=== PATIENT | female | born 1950 | race Caucasian/White ===

== ENCOUNTER 2024-12-02 13:16 | Inpatient (IN) ==
--- NOTE | 2024-12-02 13:59 | Emergency Department Note ---
Impression & Plan Severe aortic stenosis, Acute CHF (congestive heart failure) ED Provider Note NAME: MIN WAGNER AGE: 74 SEX: F : 1950 ARRIVES VIA: Walk-In INFORMANT: Patient, ED PROVIDER(S): Jese Saldivar DO CHIEF COMPLAINT: SOB HPI: This is a 74-year-old female with the PMHx of HTN, HLD, DM, anxiety/depression and severe presenting to [facility] for further evaluation of shortness of breath. Patient is accompanied by her who provide additional history. Patient reports that she was at her director teen post today and they recommended that she report to the emergency room for further evaluation. Patient is unsure what this is for. She reports over the past few weeks she has had worsening shortness of breath and chest tightness. She states it is difficult for her to breathe. She does report a significant nonproductive cough. Does have orthopnea. Worsening lower extremity edema. They deny fever or chills. No congestion. Denies chest pain or palpitations. They deny abdominal pain, nausea and vomiting. No urinary complaints. No recent changes in bowel movements. Patient denies recent changes in medications or OTC supplements. Patient offers no other complaints, today. ADDITIONAL HISTORY OBTAINED: Per HPI Chronic Medical/Social Conditions Affecting Care: Per HPI PAST MEDICAL HISTORY: See Below PAST SURGICAL HISTORY: See Below FAMILY HISTORY: See Below SOCIAL HISTORY: See Below HOME MEDICATIONS: See Below ALLERGIES: See Below VITALS: See Below PHYSICAL EXAMINATION: GENERAL: Sitting up in bed, alert, well appearing, well nourished, no distress, non-toxic EYE EXAM: normal conjunctiva. OROPHARYNX: no exudate, no erythema, lips, buccal mucosa, and tongue normal and mucous membranes are moist NECK: supple, no nuchal rigidity, no adenopathy, non-tender LUNGS: Crackles in bases. Normal chest wall mechanics HEART: 4/6 systolic murmur, regular rate, regular rhythm ABDOMEN: abdomen soft, non-tender, no masses, no rebound or guarding. BACK: Back is symmetrical on inspection and there is no deformity, no midline tenderness, no CVA tenderness. SKIN: no rashes and no bruising UPPER EXTREMITIES: upper extremities are grossly normal. LOWER EXTREMITIES: Bilateral IRVIN NEURO EXAM: Normal sensorium, GCS 15, normal speech, no gross weakness of arms, no gross weakness of legs. MEDICAL DECISION MAKING: Differential diagnoses includes but not limited to critical aortic stenosis, ACS, unstable angina, dysrhythmia, PNA, hypervolemia/pulmonary edema, CHF exacerbation, COPD exacerbation, PE, pneumothorax, pericardial effusion, cardiac tamponade, anxiety/psychogenic, viral URI In summary, this is a 74 year old female who presented with worsening shortness of breath. Differential as above. Nursing notes and pertinent past medical records reviewed. Vital signs reviewed and the patient is afebrile and hemodynamically stable. History and presentation revealed known severe aortic stenosis with cardiology follow-up. Now with worsening shortness of breath concerning for CHF. Did review documentation with case management from [facility]. It does appear that the patient is scheduled to follow-up with Dr. Ruiz of [facility] cardiology. I do suspect this is likely for aortic valve replacement last TTE on file was from December of last year. Physical examination revealed as above. As a result of my initial evaluation, there was no documentation from today's cardiology visit. I do suspect the patient likely has severe aortic stenosis now with CHF. We will plan to touch base with cardiology for further recommendations as they sent the patient to the emergency department. I spoke with Dr. Murrell of [facility] cardiology. As expected, the patient has critical aortic stenosis with likely new onset heart failure. Patient needs inpatient diuresis and TTE. Diagnostics interpreted by me include EKG and cardiac monitoring as listed below: -Cardiac Monitoring: An order was placed for continuous cardiac monitoring. The monitor shows a rate of 70-80s with regular rhythm. -ECG: normal sinus rhythm at a ventricular rate of [address] segment changes to suggest STEMI. There are some lateral depressions/T wave flattening inversions. There is some artifact on this EKG. Poor R wave progression leading to ECG read as possible anterior infarct. Patient completed laboratory studies and imaging. I did obtain i-STAT chemistries in order to start IV diuresis for this patient. Hyperglycemia but otherwise normal kidney function and electrolytes. Will proceed with IV diuresis. She appears neha to diuretics and will utilize 40 mg of Lasix to start. Chest x-ray is independently interpreted by me as interstitial edema and bilateral small pleural effusions. Cardiomegaly present. Findings consistent with CHF exacerbation. Results independently interpreted by me are mild anemia. No significant leukocytosis. No significant electrolyte derangements or kidney dysfunction besides hyperglycemia. BNP is significantly elevated. Patient appears hypervolemic on physical examination and will need to continue IV diuresis as an inpatient. Formal TTE is pending at this time. Ultimately, the decision was made to admit the patient for severe aortic stenosis complicated by acute congestive heart failure. It was recommended to admit this patient at 1459. I discussed the case with the hospitalist service via telephone/[employer] and they are agreeable to admit the patient to their services. Based on the above, including the patient's age, coexisting illnesses, labs, imaging, and exam findings the decision to treat as an inpatient. I discussed the patient with the hospitalist team who recommended admission to their services. They received the medications, treatments, interventions indicated above and their condition remain guarded. I discussed my findings with the patient and their family and they understand and agree with the treatment plan. All patient / family questions were answered to their satisfaction. Consults/Care Managements Discussions: Per [facility] ER treatment provided: See above Procedures:none Critical Care: None The chart was completed utilizing [employer] Speech voice recognition software. Grammatical errors, random word insertions, pronoun errors, and incomplete sentences are an occasional consequence of this system due to software limitations, ambient noise, and hardware issues. Any formal questions or concerns about the content, text, or information contained within the body of this dictation should be directly addressed to the physician for clarification. Past Med/Surg History Problem List (Updated 12/02/24 @ 16:23 by Jese Saldivar DO) Acute CHF (congestive heart failure) (Acute) Severe aortic stenosis (Acute) Acute heart failure with preserved ejection fraction Medical History Mood disorder Hyperlipidemia Hypothyroidism Hypertension DM I (diabetes mellitus, type I) Surgical History History of tonsillectomy History of bilateral knee replacement Social History Smoking Status: Never smoker Feels Safe at Home: Yes Allergies Allergies Allergy/AdvReac Type Severity Reaction Status Date / Time aspirin Allergy Intermediate Hives Verified 12/02/24 15:20 salicylates Allergy Intermediate Hives Verified 12/02/24 15:20 codeine Allergy Unknown NOT ON Verified 12/02/24 15:20 [facility], CAN'T REMEMBER atorvastatin AdvReac Intermediate Nausea and Verified 12/02/24 15:20 body aches bupropion AdvReac Intermediate Dizziness,ringing Verified 12/02/24 15:20 in ear and irritable lisinopril AdvReac Intermediate COUGH/SORE Verified 12/02/24 15:20 THROAT metformin AdvReac Intermediate Diarrhea Verified 12/02/24 15:20 morphine AdvReac Intermediate NAUSEA/VOMI Verified 12/02/24 15:20 TING Home Meds Home Medications Medication Instructions Recorded Confirmed benzonatate 100 mg capsule 100 mg PO TID PRN Cough 12/02/24 12/02/24 buspirone 5 mg tablet 5 mg PO BID 12/02/24 12/02/24 cholecalciferol (vitamin D3) 25 25 mcg PO DAILY 12/02/24 12/02/24 mcg (1,000 unit) capsule (Vitamin D3) cyanocobalamin (vitamin B-12) 1,000 mcg PO DAILY 12/02/24 12/02/24 1,000 mcg tablet (Vitamin B-12) ezetimibe 10 mg tablet 10 mg PO QAM 12/02/24 12/02/24 insulin aspart U-100 100 unit/mL 0 sliding scale dose continuous 12/02/24 12/02/24 subcutaneous solution subcutaneous infusion CONTINOUS levothyroxine 100 mcg tablet 100 mcg PO DAILYBB 12/02/24 12/02/24 oxybutynin chloride 5 mg 5 mg PO QPM 12/02/24 12/02/24 tablet,extended release 24 hr pantoprazole 40 mg tablet,delayed 40 mg PO HS 12/02/24 12/02/24 release pravastatin 20 mg tablet 20 mg PO QDD 12/02/24 12/02/24 sertraline 100 mg tablet 100 mg PO QAM 12/02/24 12/02/24 vit C 250 mg-vit E 90 mg-zinc 40 2 tab PO QAM 12/02/24 12/02/24 mg-copper 1 [id number] capsule (PreserVision AREDS-2) zolpidem 5 mg tablet 5 mg PO HS PRN Sleep 12/02/24 12/02/24 Results & Data (ED) Vital Signs Vital Signs - 24 hr 12/02/24 13:28 12/02/24 14:00 12/02/24 14:12 Temperature 36.6 C Temperature Source Temporal Artery Scan Pulse Rate 84 80 Pulse Rate [Apical] 77 Pulse Rate from SpO2 Sensor 79 Respiratory Rate 18 17 24 Respiratory Effort / Characteristics Non-Labored Spontaneous Respiratory Depth Normal Blood Pressure 145/70 H 137/71 Blood Pressure [Right Arm] 120/71 Blood Pressure Mean 95 92 Blood Pressure Mean [Right Arm] 87 Blood Pressure Position [Right Arm] Lying Pulse Oximetry 97 97 96 Oxygen Delivery Method Room Air Sepsis Recent Fever Within 48 Hours No Sepsis New/Unexplained Change in Mental Status No Sepsis Action Taken by Nursing No Action Required 12/02/24 14:12 12/02/24 14:24 12/02/24 14:26 Temperature Temperature Source Pulse Rate 76 81 Pulse Rate [Apical] 80 Pulse Rate from SpO2 Sensor 75 81 Respiratory Rate 27 H 27 H 22 Respiratory Effort / Characteristics Non-Labored Spontaneous Respiratory Depth Normal Blood Pressure 120/71 112/61 Blood Pressure [Right Arm] 112/61 Blood Pressure Mean 87 78 Blood Pressure Mean [Right Arm] 78 Blood Pressure Position [Right Arm] Lying Pulse Oximetry 96 93 94 Oxygen Delivery Method Room Air Sepsis Recent Fever Within 48 Hours Sepsis New/Unexplained Change in Mental Status Sepsis Action Taken by Nursing 12/02/24 14:42 12/02/24 14:47 Temperature Temperature Source Pulse Rate 80 76 Pulse Rate [Apical] Pulse Rate from SpO2 Sensor 82 Respiratory Rate 28 H Respiratory Effort / Characteristics Respiratory Depth Blood Pressure 121/68 Blood Pressure [Right Arm] Blood Pressure Mean 85 Blood Pressure Mean [Right Arm] Blood Pressure Position [Right Arm] Pulse Oximetry 95 Oxygen Delivery Method Sepsis Recent Fever Within 48 Hours Sepsis New/Unexplained Change in Mental Status Sepsis Action Taken by Nursing Laboratory Data 12/02/24 13:55 12/02/24 13:55 Lab Results 12/02/24 12/02/24 12/02/24 Range/Units 13:55 14:01 14:07 WBC 4.12 L (4.8-10.8) K/ul RBC 4.33 (4.20-5.40) M/uL Hgb 9.2 L (12.0-16.0) g/dl POC Hgb 9.9 L (12.0-16.0) g/dl Hct 30.6 L (37.0-47.0) % POC Hct 29 L (37-47) % MCV 70.7 L (80.0-100.0) fL MCH 21.2 L (25.0-34.0) pg MCHC 30.1 L (32.0-36.0) g/dL RDW Std Deviation 48.0 H (36.4-46.3) fL RDW Coeff of Kemar 19.3 H (11.5-14.5) % Plt Count 235 (130-400) K/uL MPV 11.5 (9.4-12.4) fL Immature Gran % (Auto) 0.2 % Neut % (Auto) 56.3 % Lymph % (Auto) 33.0 % [place] % (Auto) 7.8 % Eos % (Auto) 2.7 % Baso % (Auto) 0.0 % Neut # (Auto) 2.32 (1.40-6.50) K/uL Lymph # (Auto) 1.36 (1.20-3.40) K/uL [place] # (Auto) 0.32 (0.11-0.59) K/uL Eos # (Auto) 0.11 (0.00-0.50) K/uL Baso # (Auto) 0.00 (0.00-0.20) K/uL Immature Gran # (Auto) 0.01 (0.01-0.20) K/uL PT 10.9 (9.0-12.0) Seconds INR 1.0 (0.9-1.1) POC Sodium 142 (135-144) mmol/L Sodium 137 (136-145) mmol/L POC Potassium 3.8 (3.3-5.0) mmol/L Potassium 3.7 (3.5-5.1) mmol/L POC Chloride 100 L (101-112) mmol/L Chloride 105 (98-107) mmol/L Carbon Dioxide 27 (21-32) mmol/L POC Total CO2 23 L (24-31) mmol/L Anion Gap 5 (3-11) POC Anion Gap 24.0 (16-25) mmol/L POC BUN 6 L (7-18) mg/dl BUN 8 (6-23) mg/dl Creatinine 0.53 L (0.6-1.2) mg/dl POC Creatinine 0.5 L (0.6-1.3) mg/dl Est Cr Clr Drug Dosing 90.6 ml/min eGFR 95.79 BUN/Creatinine Ratio 15.1 (10-20) Glucose 232 H (70-99(Fasting)) mg/dl POC Glucose (70-99) mg/dl POC Glucose (other) 213 H (70-99) mg/dl Calcium 8.6 (8.6-10.3) mg/dl POC Ioniz Calcium Anurag 1.14 (1.12-1.32) mmol/l Magnesium 2.0 (1.7-2.4) mg/dl Total Bilirubin 0.7 (0.2-1.0) mg/dl AST 29 (13-39) U/L ALT 16 (7-52) U/L Alkaline Phosphatase 66 (34-104) U/L Troponin I High Sens 30.8 H (0-14) pg/ml B-Natriuretic Peptide 1132 H (0-100) pg/ml Total Protein 6.9 (6.0-8.3) gm/dl Albumin 3.6 (3.4-5.0) gm/dl Globulin 3.3 (2.5-4.0) gm/dl Albumin/Globulin Ratio 1.1 (0.9-2) Adenovirus (PCR) Not Detected (NotDetected) B. pertussis DNA (PCR) Not Detected (NotDetected) B.parapertussis DNA PCR Not Detected (NotDetected) C. pneumoniae DNA (PCR) Not Detected (NotDetected) Coronavirus OC43 (PCR) Not Detected (NotDetected) Coronavirus HKU1 (PCR) Not Detected (NotDetected) Coronavirus 229E (PCR) Not Detected (NotDetected) SARS-CoV-2 (PCR) Not Detected (NotDetected) Coronavirus NL63 (PCR) Not Detected (NotDetected) Human Metapneumovir PCR Not Detected (NotDetected) Influenza Type A (PCR) Not Detected (NotDetected) Influenza Type B (PCR) Not Detected (NotDetected) M. pneumoniae (PCR) Not Detected (NotDetected) Parainfluenza 1 (PCR) Not Detected (NotDetected) Parainfluenza 2 (PCR) Not Detected (NotDetected) Parainfluenza 3 (PCR) Not Detected (NotDetected) Parainfluenza 4 (PCR) Not Detected (NotDetected) RSV (PCR) Not Detected (NotDetected) Entero/Rhino (PCR) Not Detected (NotDetected) 12/02/24 Range/Units 14:52 WBC (4.8-10.8) K/ul RBC (4.20-5.40) M/uL Hgb (12.0-16.0) g/dl POC Hgb (12.0-16.0) g/dl Hct (37.0-47.0) % POC Hct (37-47) % MCV (80.0-100.0) fL MCH (25.0-34.0) pg MCHC (32.0-36.0) g/dL RDW Std Deviation (36.4-46.3) fL RDW Coeff of Kemar (11.5-14.5) % Plt Count (130-400) K/uL MPV (9.4-12.4) fL Immature Gran % (Auto) % Neut % (Auto) % Lymph % (Auto) % [place] % (Auto) % Eos % (Auto) % Baso % (Auto) % Neut # (Auto) (1.40-6.50) K/uL Lymph # (Auto) (1.20-3.40) K/uL [place] # (Auto) (0.11-0.59) K/uL Eos # (Auto) (0.00-0.50) K/uL Baso # (Auto) (0.00-0.20) K/uL Immature Gran # (Auto) (0.01-0.20) K/uL PT (9.0-12.0) Seconds INR (0.9-1.1) POC Sodium (135-144) mmol/L Sodium (136-145) mmol/L POC Potassium (3.3-5.0) mmol/L Potassium (3.5-5.1) mmol/L POC Chloride (101-112) mmol/L Chloride (98-107) mmol/L Carbon Dioxide (21-32) mmol/L POC Total CO2 (24-31) mmol/L Anion Gap (3-11) POC Anion Gap (16-25) mmol/L POC BUN (7-18) mg/dl BUN (6-23) mg/dl Creatinine (0.6-1.2) mg/dl POC Creatinine (0.6-1.3) mg/dl Est Cr Clr Drug Dosing ml/min eGFR BUN/Creatinine Ratio (10-20) Glucose (70-99(Fasting)) mg/dl POC Glucose 159 H (70-99) mg/dl POC Glucose (other) (70-99) mg/dl Calcium (8.6-10.3) mg/dl POC Ioniz Calcium Anurag (1.12-1.32) mmol/l Magnesium (1.7-2.4) mg/dl Total Bilirubin (0.2-1.0) mg/dl AST (13-39) U/L ALT (7-52) U/L Alkaline Phosphatase (34-104) U/L Troponin I High Sens (0-14) pg/ml B-Natriuretic Peptide (0-100) pg/ml Total Protein (6.0-8.3) gm/dl Albumin (3.4-5.0) gm/dl Globulin (2.5-4.0) gm/dl Albumin/Globulin Ratio (0.9-2) Adenovirus (PCR) (NotDetected) B. pertussis DNA (PCR) (NotDetected) B.parapertussis DNA PCR (NotDetected) C. pneumoniae DNA (PCR) (NotDetected) Coronavirus OC43 (PCR) (NotDetected) Coronavirus HKU1 (PCR) (NotDetected) Coronavirus 229E (PCR) (NotDetected) SARS-CoV-2 (PCR) (NotDetected) Coronavirus NL63 (PCR) (NotDetected) Human Metapneumovir PCR (NotDetected) Influenza Type A (PCR) (NotDetected) Influenza Type B (PCR) (NotDetected) M. pneumoniae (PCR) (NotDetected) Parainfluenza 1 (PCR) (NotDetected) Parainfluenza 2 (PCR) (NotDetected) Parainfluenza 3 (PCR) (NotDetected) Parainfluenza 4 (PCR) (NotDetected) RSV (PCR) (NotDetected) Entero/Rhino (PCR) (NotDetected) Administered Medications Discontinued Medications Furosemide (Furosemide 40 Mg/4 Ml Vial) 40 mg IV ONE ONE Stop: 12/02/24 14:02 Last Admin: 12/02/24 14:13 Dose: 40 mg Documented By: [email or web address] Imaging Data Radiologist's Impression: Chest X-Ray 12/02/24 13:41 XR chest 1V portable CLINICAL HISTORY: Dyspnea COMPARISON STUDY: 01/17/2012 FINDINGS: There is increased cardiomegaly with pulmonary vascular congestion. There are small bilateral pleural effusions with adjacent lung base consolidation. There is pulmonary interstitial prominence. No pneumothorax. IMPRESSION: CHF with small bilateral pleural effusions. ACT 112: Negative or not required by law. Electronically signed by: Taj Navarro M.D. 12/02/2024 2:18 PM Discharge Plan Visit Data Chief Complaint: Cardiac Assessment Stated Complaint: HEART, DOC REFERRAL ED Provider: Jese Saldivar Discharge Problem: Severe aortic stenosis, Acute CHF (congestive heart failure) Patient Disposition: Admitted As Inpatient Condition: Serious Forms Stand Alone Forms: [facility] [place] [employer] Prescriptions Prescriptions: No Action buspirone 5 mg tablet 5 mg PO BID sertraline 100 mg tablet 100 mg PO QAM cyanocobalamin (vitamin B-12) [Vitamin B-12] 1,000 mcg Tablet 1,000 mcg PO DAILY levothyroxine 100 mcg tablet 100 mcg PO DAILYBB benzonatate 100 mg capsule 100 mg PO TID PRN (Reason: Cough) insulin aspart U-100 100 unit/mL solution 0 sliding scale dose continuous subcutaneous infusion CONTINOUS MDD 80 UNITS/DAILY Rx Instructions: insulin pump pantoprazole 40 mg tablet,delayed release (DR/EC) 40 mg PO HS oxybutynin chloride 5 mg tablet extended release 24hr 5 mg PO QPM pravastatin 20 mg tablet 20 mg PO QDD zolpidem 5 mg tablet 5 mg PO HS PRN (Reason: Sleep) cholecalciferol (vitamin D3) [Vitamin D3] 25 mcg (1,000 unit) Capsule 25 mcg PO DAILY ezetimibe 10 mg tablet 10 mg PO QAM PreserVision AREDS-2 250-90-40-1 mg Capsule 2 tab PO QAM Referrals Referrals: Anam Castro MD [Outside Practitioners] -
--- NOTE | 2024-12-02 14:09 | Cardiology Consultation ---
Date of Consultation December 02, 2024 Assessment & Plan (1) Acute heart failure with preserved ejection fraction: (2) Severe aortic stenosis: Plan Patient is a 74 year old female admitted to [facility] from PCP office with complaints of dyspnea/cough/volume overload consistent with acute heart failure likely due to severe valvular heart disease/severe . Echo in Dec 2023 demonstrated borderline severe at the time. chest xray as an outpatient yesterday with pulm vascular congestion and small b/l pleural effusions. Recommendations: Furosemide 40 mg IV lasix now. May need repeat dose later this evening. Titrate dose as needed based on response. Update echo Monitor I+O's Daily weight with standing scale. Labs pending. Replace electrolytes as needed Currently BP is controlled. Further recommendations pending response to IV lasix, review of labs, echo, and discussion with Dr. Murrell. Patient does not take a diuretic as an outpatient and will likely need one going forward once volume status is optimized here. Will ultimately require valvular intervention in the future for likely severe . Case discussed with Dr. Murrell I spent a total of 60 minutes on the date of service in preparation, delivery, and documentation of the care provided to this patient, excluding any time spent in the performance of separately billed services. Briseida Gutierrez PA-C Department of Cardiology, [facility] This chart was completed in part utilizing Speech Voice Recognition Software. Grammatical errors, random word insertions, pronoun errors, and incomplete sentences are an occasional consequence of this system due to software limitations, ambient noise, and hardware issues. Any formal questions or concerns about the content, text, or information contained within the body of this dictation should be directly addressed to the provider for clarification. Supervising Physician Co-Signing Physician Notes Patient was seen and personally examined. Chart, medications reviewed. Inpatient outpatient records and echocardiogram personally reviewed. Full assessment and plan as outlined by advanced provider above. Care and management discussed and personally endorsed 74-year-old female with known borderline severe to severe calcific aortic stenosis presents with several weeks of worsening shortness of breath and cough not responsive to outpatient management with bronchodilators and antibiotics. Chest x-ray demonstrates pleural effusions and congestive heart failure. Echocardiogram today reviewed demonstrates mild left ventricular hypertrophy. Mild global hypokinesis EIF 45 to 50% Aortic valve trileaflet and calcified with restricted mobility peak aortic valve velocity 4.1 4.2 m/s there is mild aortic insufficiency, moderate to severe mitral insufficiency and mild tricuspid insufficiency with elevated pulmonary pressures by indirect measurement. Left atrium is moderately dilated. Laboratory studies notable for microcytic anemia Exam Harsh grade 3/6 systolic murmur with S2 obscured trace pedal edema only with basilar rales on pulmonary exam Impression: Decompensated congestive heart failure, valvular Plan as above. Begin an initial treatment with IV diuretic Iron studies to investigate microcytic anemia Cardiology will continue to follow History of Present Illness Reason for Consultation: Severe Aortic stenosis; Acute HFpEF Requesting Physician: ER/[facility] Hospitalist Attending Physician: Dr. Murrell History of Present Illness Patient is a 74 year old female presenting to [place] ER today by the direction of her PCP due to worsening SOB, volume overload and concerns regarding acute HFpEF due to severe . Patient is known to [facility] Cardiology/Dr. Murrell. History includes: 1. Borderline severe to severe per echo in 12/2023. 2. Hypertension 3. Dyslipidemia 4. DM type II Patient reports worsening SOB, cough, chest congestion starting several weeks ago. She went to urgent care and was treated for lower respiratory tract infection/bronchitis, but symptoms failed to improve. She had a chest xray yesterday as an outpatient which demonstrated pulm vascular congestion and small b/l pleural effusions. She went to see PCP today and due to concerns for HFpEF due to valvular heart disease, she was sent to the ER. She also reports 10 lb weight gain over the last few weeks as well. She reports compliance with all meds as outpatient. She does not take a diuretic. Her echo in Dec 2023 demonstrated borderline severe . She is scheduled to see valve clinic as an outpatient in Dec 2024. At time of consult, patient resting in bed. She reports feeling "ok" at rest. SOB occurs with minimal exertion such as walking across the room. No chest pain reported. She notes ongoing abdominal bloating over the last few weeks. She has a cough at night with orthopnea recently as well. Labs are currently pending. She just received IV lasix 40 mg in the ER at time of evaluation. Allergies Allergy/AdvReac Type Severity Reaction Status Date / Time aspirin Allergy Intermediate Hives Verified 12/02/24 15:20 salicylates Allergy Intermediate Hives Verified 12/02/24 15:20 codeine Allergy Unknown NOT ON Verified 12/02/24 15:20 [facility] MED LIST, CAN'T REMEMBER atorvastatin AdvReac Intermediate Nausea and Verified 12/02/24 15:20 body aches bupropion AdvReac Intermediate Dizziness,ringing Verified 12/02/24 15:20 in ear and irritable lisinopril AdvReac Intermediate COUGH/SORE Verified 12/02/24 15:20 THROAT metformin AdvReac Intermediate Diarrhea Verified 12/02/24 15:20 morphine AdvReac Intermediate NAUSEA/VOMI Verified 12/02/24 15:20 TING Home Medications Medication Instructions Recorded Confirmed Type benzonatate 100 mg capsule 100 mg PO TID PRN Cough 12/02/24 12/02/24 History buspirone 5 mg tablet 5 mg PO BID 12/02/24 12/02/24 History cholecalciferol (vitamin D3) 25 25 mcg PO DAILY 12/02/24 12/02/24 History mcg (1,000 unit) capsule (Vitamin D3) cyanocobalamin (vitamin B-12) 1,000 mcg PO DAILY 12/02/24 12/02/24 History 1,000 mcg tablet (Vitamin B-12) ezetimibe 10 mg tablet 10 mg PO QAM 12/02/24 12/02/24 History insulin aspart U-100 100 unit/mL 0 sliding scale dose continuous 12/02/24 12/02/24 History subcutaneous solution subcutaneous infusion CONTINOUS levothyroxine 100 mcg tablet 100 mcg PO DAILYBB 12/02/24 12/02/24 History oxybutynin chloride 5 mg 5 mg PO QPM 12/02/24 12/02/24 History tablet,extended release 24 hr pantoprazole 40 mg tablet,delayed 40 mg PO HS 12/02/24 12/02/24 History release pravastatin 20 mg tablet 20 mg PO QDD 12/02/24 12/02/24 History sertraline 100 mg tablet 100 mg PO QAM 12/02/24 12/02/24 History vit C 250 mg-vit E 90 mg-zinc 40 2 tab PO QAM 12/02/24 12/02/24 History mg-copper 1 [id number] capsule (PreserVision AREDS-2) zolpidem 5 mg tablet 5 mg PO HS PRN Sleep 12/02/24 12/02/24 History Patient History Medical History (Updated 12/02/24 @ 16:23 by Jese Saldivar DO) Mood disorder Hyperlipidemia Hypothyroidism Hypertension DM I (diabetes mellitus, type I) Surgical History (Updated 12/02/24 @ 16:20 by Lee Ann Greene PA-C) History of tonsillectomy History of bilateral knee replacement Social History Smoking Status: Never smoker Feels Safe at Home: Yes Review of Systems Review of Systems: All systems reviewed & are unremarkable except as noted in HPI & below Physical Exam Constitutional: WD/WN, vitals as above no acute distress Respiratory: no labored breathing Auscultation: + crackles (B/L) Cardiovascular: Rate/Rhythm: regular rate and regular rhythm Heart Sounds: + murmur (II-III systolic murmur LSB with radiation to the neck) Vessels: + JVD Extremities: + edema (1+ b/l edema) Gastrointestinal (Abdomen): normal bowel sounds, soft, nontender, no hepatosplenomegaly Musculoskeletal: no cyanosis or clubbing, extremities motor strength 5/5 Neurologic: PERRL, EOMI, accommodation nl, no face palsy, no dysarthria Psychiatric: A+Ox3, euthymic affect Results & Data Vital Signs (Past 12 Hours) Vital Signs Temp Pulse Resp BP Pulse Ox 12/02/24 13:28 36.6 C 84 18 145/70 H 97 Laboratory Results Intake and Output 12/01/24 12/02/24 12/02/24 22:59 06:59 14:59 Other: Weight 87.2 kg Weight Measurement Method Chair Scale Patient Weight 12/03/24 06:59 Weight 87.2 kg Labs pending Diagnostic Findings Telemetry: NSR. No arrhythmias EKG here - pending Echo - pending Prior outside data reviewed: EKG completed today at PCP office - NSR with T wave inversion in lateral leads - I, AVL Chest xray reviewed from yesterday: IMPRESSION Mild pulmonary vascular congestion and small pleural effusions. Echo report reviewed from Dec 2023: Interpretation Summary The examination is adequate to evaluate the referral indication. The LV wall thickness is mildly increased (concentric). The left atrium is moderately enlarged. The qualitative LV ejection fraction is 55-59% (normal). The aortic valve is moderately calcified. Borderline severe to severe aortic stenosis is present. The peak CW velocity= 4 meters/second as obtained from the right sternal border with the non imaging probe. Mean gradient 35 mm Hg. The aortic valve area by planimetry method is in the range of 0.9-1.1 cm2. Moderate aortic valve regurgitation is present. Mild mitral regurgitation is present. Mild tricuspid regurgitation is present. The aortic root and proximal ascending aorta are normal sized. Compared to the previous study dated 08/22/2023, the velocities across the aortic valve have progressed to a subtle degree. On 2D assessment, the valve is slightly better visualized on the present study Medications Administered Furosemide 40 mg IV x1 dose given in the ER. Home meds not verified currently. PG Care Time/CCT Total # of Minutes Spent Total Time Spent with Patient: Total time spent is greater than 50% in coordination of care (as documented) at patient's floor/unit and/or counseling patient: 60 minutes Coding Level of Care Code 24725 IN/OBS CONSULT LVL 5,80M Diagnoses Acute heart failure with preserved ejection fraction I50.31 Severe aortic stenosis I35.0
[2024-12-02] MEDS: FUROSEMIDE 40 MG/4 ML VIAL IV ONE (14:13)
--- NOTE | 2024-12-02 14:19 | XRay Report ---
XR chest 1V portable CLINICAL HISTORY: Dyspnea COMPARISON STUDY: 01/17/2012 FINDINGS: There is increased cardiomegaly with pulmonary vascular congestion. There are small bilater al pleural effusions with adjacent lung base consolidation. There is pulmonary interstitial prominenc e. No pneumothorax. IMPRESSION: CHF with small bilateral pleural effusions. ACT 112: Negative or not required by law. Electronically signed by: Taj Navarro M.D. 12/02/2024 2:18 PM
[2024-12-02 14:38] LABS: Hematocrit (blood only) 30.6 % (37.0-47.0); Hemoglobin 9.2 g/dl (12.0-16.0); Immature Granulocytes # (auto) 0.01 K/uL (0.01-0.20); Immature Granulocytes % (auto) 0.2 %; Mean Corpuscular Hemoglobin 21.2 pg (25.0-34.0); Mean Corpuscular Volume 70.7 fL (80.0-100.0); Platelet Count 235 K/uL (130-400); RDW Standard Deviation 48.0 fL (36.4-46.3); Red Blood Count 4.33 M/uL (4.20-5.40); White Blood Count 4.12 K/ul (4.8-10.8)
[2024-12-02 14:57] LABS: Alanine Aminotransferase 16.0 U/L (7-52); Albumin Globulin Ratio 1.1 (0.9-2); Albumin Level 3.6 gm/dl (3.4-5.0); Alkaline Phosphatase 66.0 U/L (34-104); Anion Gap 5.0 (3-11); Bilirubin,Total 0.7 mg/dl (0.2-1.0); Blood Urea Nitrogen 8.0 mg/dl (6-23); Calcium 8.6 mg/dl (8.6-10.3); Carbon Dioxide 27.0 mmol/L (21-32); Chloride 105.0 mmol/L (98-107); Creatinine Clr Calc Pharmacy 90.6 ml/min; Globulin 3.3 gm/dl (2.5-4.0); Glucose 232.0 mg/dl (70-99(Fasting)); Magnesium 2.0 mg/dl (1.7-2.4); Potassium 3.7 mmol/L (3.5-5.1); Sodium 137.0 mmol/L (136-145); Total Protein 6.9 gm/dl (6.0-8.3)
[2024-12-02 15:08] LABS: INR 1.0 (0.9-1.1); Prothrombin Time 10.9 Seconds (9.0-12.0)
[2024-12-02 15:26] LABS: Chlamydia pneumoniae PCR Not Detected (NotDetected); Coronavirus 229E PCR Not Detected (NotDetected); Coronavirus CoV-2 (COVID19)PCR Not Detected (NotDetected); Coronavirus HKU1 PCR Not Detected (NotDetected); Coronavirus NL63 PCR Not Detected (NotDetected); Coronavirus OC43PCR Not Detected (NotDetected); Human Metapneumovirus PCR Not Detected (NotDetected); Parainfluenza Virus 1 PCR Not Detected (NotDetected); Parainfluenza Virus 2 PCR Not Detected (NotDetected); Parainfluenza Virus 3 PCR Not Detected (NotDetected); Parainfluenza Virus 4 PCR Not Detected (NotDetected); Respiratory Syncytial VirusPCR Not Detected (NotDetected); Rhinovirus/Enterovirus PCR Not Detected (NotDetected)
--- NOTE | 2024-12-02 15:28 | History & Physical Report ---
Date of Service December 02, 2024 Assessment & Plan (1) Severe aortic stenosis: (2) Acute heart failure with preserved ejection fraction: (3) DM I (diabetes mellitus, type I): (4) Mood disorder: (5) Hyperlipidemia: (6) Hypothyroidism: Plan Patient is a 74 yo F with PMH with borderline severe aortic valve stenosis as per echo in 12/2023, DM I, hypothyroidism, hyperlipidemia, mood disorder and other medical problems listed below sent over from PCP's office due to worsening SOB, cough and congestion over the past few weeks consistent with acute CHF 2/2 severe aortic stenosis. Acute heart failure in setting of severe aortic stenosis SOB x 2 weeks, outpatient CXR from 12/02 with pulm vascular congestion and small bilateral pleural effusions Echo from 2023 showed borderline severe . She is scheduled to see valve clinic as an outpatient in Dec 2024 BNP 1132, HS troponin 30.8 Urgent Echo ordered in ER revealing mild global hypokinesis with EF 45-50%, severe aortic stenosis, mild aortic insufficiency, moderate to severe mitral insufficiency and mild tricuspid insufficiency, LA mod. dilated Seen by cardiology in the ER- ordered 40mg IV Lasix x 1 Strict I&Os, daily standing weights, low sodium diet Trend cardiac enzymes, repeat labs and ECG in AM Microcytic anemia Hgb 9.2, MCV 70.7 Iron panel ordered for AM DM I A1c 7.5 in August, repeat in AM Uses insulin pump, prefers to continue while inpatient BSG ACHS Hypothyroidism Continue levothyroxine Hyperlipidemia Continue statin Mood disorder Continue buspirone, sertraline DVT Ppx: SQ Lovenox Code status: FULL PCP: Jaylene Dispo: Admitted to PCU Patient seen in collaboration with Dr. Czaares. Please see addendum. I spent a total of 75 minutes coordinating, documenting, and providing care for this patient excluding time spent in the performance of separately billed services or time spent by another provider/QHP. History of Present Illness Chief Complaint: CHF, aortic stenosis Primary Care Provider: Anam Castro MD Patient is a 74 yo F with PMH with borderline severe aortic valve stenosis as per echo in 12/2023, DM I, hypothyroidism, hyperlipidemia, mood disorder and other medical problems listed below sent over from PCP's office due to worsening SOB, cough and congestion over the past few weeks. Was seen in urgent care and treated for a UTI with a Z-Pack, which she has completed. Cough and SOB persisted, so she had a CXR yesterday as an outpatient which demonstrated pulm vascular congestion and small bilateral pleural effusions. Reports 10 lb weight gain over the last few weeks as well. She went to see PCP today and due to concerns for volume overload 2/2 valvular heart disease, she was sent to the ER. Was seen in ER and underwent echo and was ordered 40mg IV Lasix x 1 by cardiology service. No F/C, lightheadedness, CP, N/V, abd pain, dysuria, diarrhea or constipation. Patient with known severe aortic stenosis - echo from 2023 showed borderline severe . She is scheduled to see valve clinic as an outpatient in Dec 2024. Is compliant with all medications. Allergies Allergy/AdvReac Type Severity Reaction Status Date / Time aspirin Allergy Intermediate Hives Verified 12/02/24 15:20 salicylates Allergy Intermediate Hives Verified 12/02/24 15:20 codeine Allergy Unknown NOT ON Verified 12/02/24 15:20 [facility] MED LIST, CAN'T REMEMBER atorvastatin AdvReac Intermediate Nausea and Verified 12/02/24 15:20 body aches bupropion AdvReac Intermediate Dizziness,ringing Verified 12/02/24 15:20 in ear and irritable lisinopril AdvReac Intermediate COUGH/SORE Verified 12/02/24 15:20 THROAT metformin AdvReac Intermediate Diarrhea Verified 12/02/24 15:20 morphine AdvReac Intermediate NAUSEA/VOMI Verified 12/02/24 15:20 TING Home Medications Medication Instructions Recorded Confirmed Type benzonatate 100 mg capsule 100 mg PO TID PRN Cough 12/02/24 12/02/24 History buspirone 5 mg tablet 5 mg PO BID 12/02/24 12/02/24 History cholecalciferol (vitamin D3) 25 25 mcg PO DAILY 12/02/24 12/02/24 History mcg (1,000 unit) capsule (Vitamin D3) cyanocobalamin (vitamin B-12) 1,000 mcg PO DAILY 12/02/24 12/02/24 History 1,000 mcg tablet (Vitamin B-12) ezetimibe 10 mg tablet 10 mg PO QAM 12/02/24 12/02/24 History insulin aspart U-100 100 unit/mL 0 sliding scale dose continuous 12/02/24 12/02/24 History subcutaneous solution subcutaneous infusion CONTINOUS levothyroxine 100 mcg tablet 100 mcg PO DAILYBB 12/02/24 12/02/24 History oxybutynin chloride 5 mg 5 mg PO QPM 12/02/24 12/02/24 History tablet,extended release 24 hr pantoprazole 40 mg tablet,delayed 40 mg PO HS 12/02/24 12/02/24 History release pravastatin 20 mg tablet 20 mg PO QDD 12/02/24 12/02/24 History sertraline 100 mg tablet 100 mg PO QAM 12/02/24 12/02/24 History vit C 250 mg-vit E 90 mg-zinc 40 2 tab PO QAM 12/02/24 12/02/24 History mg-copper 1 pg-[id number]-drjzah capsule (PreserVision AREDS-2) zolpidem 5 mg tablet 5 mg PO HS PRN Sleep 12/02/24 12/02/24 History Past Med/Surg History Problem List (Updated 12/02/24 @ 16:23 by Jese Saldivar DO) Acute CHF (congestive heart failure) (Acute) Severe aortic stenosis (Acute) Acute heart failure with preserved ejection fraction Medical History Mood disorder Hyperlipidemia Hypothyroidism Hypertension DM I (diabetes mellitus, type I) Surgical History History of tonsillectomy History of bilateral knee replacement Social History Smoking Status: Never smoker Feels Safe at Home: Yes Review of Systems Review of Systems: At least ten systems reviewed and negative except as noted in the HPI. Physical Exam Physical Exam: General Appearance: WD/WN, vitals as above, NAD, sitting up in bed, pleasant, conversing easily Head: normocephalic, atraumatic Eyes: normal inspection, PERRL, conjunctivae normal, anicteric sclerae ENT: external ear and nose normal, oropharynx normal Neck: normal visual inspection Respiratory: normal respiratory effort, bibasilar rales. No accessory muscle use Cardiovascular: regular rate, rhythm, + ANKIT, normal peripheral pulses, 1+ BLE edema, +JVD Chest: normal inspection of chest Abdomen/GI: normal bowel sounds, soft, nontender, no hepatosplenomegaly Extremities/Musculoskeletal: no cyanosis or clubbing, extremities motor strength 5/5 Neurologic: PERRL, EOMI, accommodation nl, no face palsy, no dysarthria, CN's II-XI intact bilaterally and moves all extremities Psychiatric: A+Ox3, euthymic affect Skin: no rashes, normal color, warm/dry Results & Data Results & Data Vital Signs (Past 12 Hours) Vital Signs Temp Pulse Pulse Resp BP BP Pulse Ox 12/02/24 14:47 76 12/02/24 14:42 80 28 H 121/68 95 12/02/24 14:26 80 22 112/61 94 12/02/24 14:24 81 27 H 112/61 93 12/02/24 14:12 76 27 H 120/71 96 12/02/24 14:12 77 24 120/71 96 12/02/24 14:00 80 17 137/71 97 12/02/24 13:28 36.6 C 84 18 145/70 H 97 O2 Del Method 12/02/24 14:47 12/02/24 14:42 12/02/24 14:26 Room Air 12/02/24 14:24 12/02/24 14:12 12/02/24 14:12 Room Air 12/02/24 14:00 12/02/24 13:28 Laboratory Results Short CBC 12/02/24 Range/Units 13:55 WBC 4.12 L (4.8-10.8) K/ul Hgb 9.2 L (12.0-16.0) g/dl Hct 30.6 L (37.0-47.0) % Plt Count 235 (130-400) K/uL BMP 12/02/24 13:55 Sodium 137 Potassium 3.7 Chloride 105 Carbon Dioxide 27 BUN 8 Creatinine 0.53 L Glucose 232 H Calcium 8.6 Liver Function 12/02/24 Range/Units 13:55 Total Bilirubin 0.7 (0.2-1.0) mg/dl AST 29 (13-39) U/L ALT 16 (7-52) U/L Alkaline Phosphatase 66 (34-104) U/L Albumin 3.6 (3.4-5.0) gm/dl Diagnostic Findings Chest X-Ray 12/02/24 13:41 XR chest 1V portable CLINICAL HISTORY: Dyspnea COMPARISON STUDY: 01/17/2012 FINDINGS: There is increased cardiomegaly with pulmonary vascular congestion. There are small bilateral pleural effusions with adjacent lung base consolidation. There is pulmonary interstitial prominence. No pneumothorax. IMPRESSION: CHF with small bilateral pleural effusions. ACT 112: Negative or not required by law. Electronically signed by: Taj Navarro M.D. 12/02/2024 2:18 PM ECG Additional Comments: ECG reviewed - NSR @ [address] elevation, T wave changes in lateral leads Supervising Physician Co-Signing Physician Notes Patient seen and examined at bedside. present as well. Shortness of breath and dyspnea for past few days. Can only walk to bathroom without becoming severely dyspneic. Baseline is close to unlimited walking without severe symptoms. On exam, crackles in bilateral lower lung guevara, crescendo decrescendo murmur with S3/S4 both noted, no pitting edema in extremities, elevated JVP (expected in severe ). Bicytopenia with low MCV, creatinine at baseline, expected elevated BNP, mildly elevated HS troponin. Xr Chest with CHF and with small bilateral pleural effusions, personally reviewed. Patient presenting with acutely worsening dyspnea in likely severe, now symptomatic, aortic stenosis. Appreciate cardiology input and assistance with case. Gentle diuresis given preload dependence. Repeat echo ordered, check iron studies given low MCV with consideration of iron transfusion if needed. Will need a sooner rather than later outpatient evaluation for aortic valve replacement given the now symptomatic nature of disease. I have seen and discussed the case with the collaborating advanced practitioner. I agree with the above H&P. I have reviewed and confirmed the patients medical history, the findings on physical examination, and the patients diagnosis and treatment plan with Lee Ann Greene PA-C and agree with the information documented. I spent a total of 40 minutes coordinating, documenting, and providing care for this patient excluding time spent in the performance of separately billed services. All of the aforementioned completed outside of collaborating with the assigned advanced practitioner for a full treatment plan. I have reviewed the advanced practitioner's documentation, and I agree with, and take responsibility for the plan of care
[2024-12-02] MEDS ORDERED: PHARMACY GLYCEMIC MGMT CONSULT PRN (15:34)
[2024-12-02] MEDS ORDERED: ONDANSETRON INJ 2 MG/ML 2 ML VIAL IV PRN (16:33)
[2024-12-02] MEDS ORDERED: MELATONIN 3 MG TAB PO PRN (16:33)
[2024-12-02] MEDS ORDERED: BENZONATATE 100 MG CAPSULE PO PRN (16:33)
[2024-12-02 17:05] LABS: Base Excess VBG 2.9 mEq/L; HCO3 VBG 28 mmol/L; Oxygen Saturation VBG 61.1 %; PCO2 VBG 43 mmHg (38-50); PO2 VBG 35 mmHg; pH VBG 7.42 (7.36-7.41)
[2024-12-02] MEDS ORDERED: guaiFENesin 600 MG TABCR PO PRN (17:31)
[2024-12-02] MEDS: PRAVASTATIN SOD 20 MG TAB PO SCH (18:34)
[2024-12-02] MEDS ORDERED: GLUCOSE 40% GEL 15 GM TUBE PO PRN (19:00)
[2024-12-02] MEDS ORDERED: GLUCAGON FOR INJ 1 MG VIAL SQ PRN (19:00)
[2024-12-02] MEDS ORDERED: CARBOHYDRATES FOR HYPOGLYCEMIA PO PRN (19:00)
[2024-12-02] MEDS ORDERED: GLUCOSE 10 TAB/TUBE PO PRN (19:00)
[2024-12-02] MEDS ORDERED: INSULIN ASPART 100 UNITS/ML VIAL SC PRN (19:00)
[2024-12-02] MEDS ORDERED: DEXTROSE 50% 50 ML SYRINGE IV PRN (19:00)
[2024-12-02] MEDS: OXYBUTYNIN CHLORIDE XL 5 MG TABCR PO SCH (20:43)
[2024-12-02] MEDS: busPIRone 5 MG TAB PO SCH (20:43)
[2024-12-02 21:37] LABS: Appearance Urine Clear (Clear); Glucose Urine UA Negative (Negative)
[2024-12-02] MEDS: INSULIN, Rapid-Acting PUMP SCH (21:39)
[2024-12-02] MEDS: ZOLPIDEM TARTRATE 5 MG TAB PO PRN (23:13)
[2024-12-03] MEDS: LEVOTHYROXINE SODIUM 100 MCG TABLET PO SCH (05:39)
[2024-12-03 06:28] LABS: Hematocrit (blood only) 30.7 % (37.0-47.0); Hemoglobin 8.9 g/dl (12.0-16.0); Mean Corpuscular Hemoglobin 20.4 pg (25.0-34.0); Mean Corpuscular Volume 70.3 fL (80.0-100.0); Platelet Count 230 K/uL (130-400); RDW Standard Deviation 47.6 fL (36.4-46.3); Red Blood Count 4.37 M/uL (4.20-5.40); White Blood Count 4.70 K/ul (4.8-10.8)
[2024-12-03 06:45] LABS: Anion Gap 5.0 (3-11); Blood Urea Nitrogen 10.0 mg/dl (6-23); Calcium 8.5 mg/dl (8.6-10.3); Carbon Dioxide 29.0 mmol/L (21-32); Chloride 105.0 mmol/L (98-107); Creatinine Clr Calc Pharmacy 87.8 ml/min; Glucose 206.0 mg/dl (70-99(Fasting)); Iron 24.0 mcg/dl (35-150); Magnesium 2.3 mg/dl (1.7-2.4); Potassium 4.4 mmol/L (3.5-5.1); Sodium 139.0 mmol/L (136-145); Total Iron Binding Cap Calc 403.0 mcg/dl (250-450); Transferrin 288.0 mg/dl (200-360); Transferrin (FE) Percent Satur 6.0 % (15-50)
[2024-12-03 07:43] LABS: Hemoglobin A1C 7.7 % (4.5-5.6)
[2024-12-03] MEDS: CEROVITE ADV FORMULA TAB PO SCH (09:04)
[2024-12-03] MEDS: CYANOCOBALAMIN (B-12) 500 MCG TABLET PO SCH (09:04)
[2024-12-03] MEDS: CHOLECALCIFEROL 25 MCG (1000 UNITS) TAB PO SCH (09:05)
[2024-12-03] MEDS: SERTRALINE HCL 100 MG TABLET PO SCH (09:05)
[2024-12-03] MEDS: EZETIMIBE 10 MG TAB PO SCH (09:05)
[2024-12-03] MEDS: FAMOTIDINE 20 MG TAB PO ONE (10:27)
--- NOTE | 2024-12-03 10:48 | Cardiology Progress Note ---
Date of Service December 03, 2024 Assessment & Plan (1) Severe aortic stenosis: (2) Acute on chronic heart failure with reduced ejection fraction and diastolic dysfunction: (3) Heart failure due to valvular disease: (4) Iron deficiency anemia: Plan Patient is a 74 year old female admitted to [facility] from PCP office with complaints of dyspnea/cough/volume overload consistent with acute heart failure likely due to severe valvular heart disease/severe . Echo in Dec 2023 demonstrated borderline severe at the time. chest xray as an outpatient yesterday with pulm vascular congestion and small b/l pleural effusions. Echo this admission with severe and mildly reduced LVEF at 45-50% with also moderate/severe MR. Also with significant iron deficiency anemia noted on labs. Recommendations: Patient responded to IV furosemide 40 mg x1 dose yesterday Repeat dose of furosemide 40 mg IV x1 today Monitor I+O's Daily weight with standing scale. Echo yesterday with mildly reduced LVEF with severe . Once volume status has improved, consider cardiac catheterization this admission, due to severe valvular disease and needing future intervention. Consider also starting GDMT with metoprolol and/or ARB/ARNI due to reduced LVEF pending renal function and blood pressure response to diuretics. Recommend treatment of her iron deficiency anemia with possible IV iron. Defer to hospitalist. Patient denies recent issues with blood loss or change in bowel habits. Case discussed with Dr. Handy Nguyen spent a total of 35 minutes on the date of service in preparation, delivery, and documentation of the care provided to this patient, excluding any time spent in the performance of separately billed services. Briseida Gutierrez PA-C Department of Cardiology, [facility] This chart was completed in part utilizing Speech Voice Recognition Software. Grammatical errors, random word insertions, pronoun errors, and incomplete sentences are an occasional consequence of this system due to software limitations, ambient noise, and hardware issues. Any formal questions or concerns about the content, text, or information contained within the body of this dictation should be directly addressed to the provider for clarification. Admission and Anticipated Discharge Date Admission Date: December 02, 2024 Supervising Physician Co-Signing Physician Notes Patient seen and examined. Full assessment and plan as outlined by advanced provider above. Care and management discussed and personally endorsed 74-year-old female with valvular heart disease, severe arctic stenosis presenting with decompensated congestive heart failure responding promptly to IV diuretics. Renal function remaining preserved. Laboratory studies notable for anemia, microcytic with iron deficiency present. Recommendations as above Additional dose of furosemide today Heart failure with iron deficiency anemia recommend iron infusion Will keep n.p.o. after midnight to allow for additional testing as warranted Subjective Patient resting in chair this morning. Feeling better but still dyspneic when a mbulating from bed to bathroom. Notes frequent urination after IV lasix yesterday. Cough improving. She slept better last night. No chest pain/tightness currently. No edema. Abdominal bloating also improving. Weight trending downward. Only mild orthopnea reported last night. Review of Systems Review of Systems: All systems reviewed & are unremarkable except as noted in HPI & below Physical Exam Constitutional: WD/WN, vitals as above no acute distress Respiratory: no labored breathing Auscultation: + crackles (B/L) Cardiovascular: Rate/Rhythm: regular rate and regular rhythm Heart Sounds: + murmur (II-III systolic murmur LSB with radiation to the neck) Vessels: + JVD Extremities: + edema (1+ b/l edema) Gastrointestinal (Abdomen): normal bowel sounds, soft, nontender, no hepatosplenomegaly Musculoskeletal: no cyanosis or clubbing, extremities motor strength 5/5 Neurologic: PERRL, EOMI, accommodation nl, no face palsy, no dysarthria Psychiatric: A+Ox3, euthymic affect Results & Data Vital Signs (Past 12 Hours) Vital Signs Temp Pulse Pulse Resp BP Pulse Ox O2 Del Method 12/03/24 09:49 Room Air 12/03/24 07:23 71 12/03/24 07:21 36.5 C 87 18 124/72 96 Room Air 12/03/24 02:27 36.5 C 73 16 130/77 95 Room Air 12/02/24 23:08 36.6 C 74 16 130/79 93 Room Air 12/02/24 22:56 83 Laboratory Results Cardiac Enzymes 12/02/24 12/02/24 Range/Units 13:55 16:52 AST 29 (13-39) U/L Troponin I High Sens 30.8 H 34.8 H (0-14) pg/ml B-Natriuretic Peptide 1132 H (0-100) pg/ml Coagulation 12/02/24 Range/Units 13:55 PT 10.9 (9.0-12.0) Seconds B-Natriuretic Peptide 1132 H (0-100) pg/ml CBC 12/02/24 12/03/24 Range/Units 13:55 05:33 WBC 4.12 L 4.70 L (4.8-10.8) K/ul RBC 4.33 4.37 (4.20-5.40) M/uL Hgb 9.2 L 8.9 L (12.0-16.0) g/dl Hct 30.6 L 30.7 L (37.0-47.0) % Plt Count 235 230 (130-400) K/uL Neut # (Auto) 2.32 (1.40-6.50) K/uL Lymph # (Auto) 1.36 (1.20-3.40) K/uL [place] # (Auto) 0.32 (0.11-0.59) K/uL Eos # (Auto) 0.11 (0.00-0.50) K/uL Baso # (Auto) 0.00 (0.00-0.20) K/uL Comprehensive Metabolic Panel 12/02/24 12/03/24 Range/Units 13:55 05:33 Sodium 137 139 (136-145) mmol/L Potassium 3.7 4.4 (3.5-5.1) mmol/L Chloride 105 105 (98-107) mmol/L Carbon Dioxide 27 29 (21-32) mmol/L BUN 8 10 (6-23) mg/dl Creatinine 0.53 L 0.54 L (0.6-1.2) mg/dl Glucose 232 H 206 H (70-99(Fasting)) mg/dl Calcium 8.6 8.5 L (8.6-10.3) mg/dl AST 29 (13-39) U/L ALT 16 (7-52) U/L Alkaline Phosphatase 66 (34-104) U/L Total Protein 6.9 (6.0-8.3) gm/dl Albumin 3.6 (3.4-5.0) gm/dl Intake and Output 12/02/24 12/03/24 12/03/24 22:59 06:59 14:59 Intake Total 420 / 420 Output Total 700 / 1100 400 / 1100 Balance -700 / -680 / Intake: Oral 420 / 420 Output: Urine 700 / 1100 400 / 1100 Other: Weight 86.183 kg 85.1 kg Weight Measurement Method Last Office Visit Standing Scale Diagnostic Findings Telemetry reviewed: NSR in the 70-100 range Echo report reviewed from 12/02: LVEF 45-50% Mild global hypokinesis Mild LVH Mild AI Severe Moderate to severe MR RV systolic pressure is elevated at 40-50 mmHg Medications Administered Current Inpatient Medications Acetaminophen (Acetaminophen 325 Mg Tab) 650 mg PO Q4H PRN PRN Reason: Pain or Fever Stop: 01/01/25 16:32 Buspirone HCl (Buspirone 5 Mg Tab) 5 mg PO BID JARON Stop: 01/01/25 20:59 Last Admin: 12/03/24 09:04 Dose: 5 mg Cyanocobalamin (Cyanocobalamin (B-12) 500 Mcg Tablet) 1,000 mcg PO DAILY JARON Stop: 01/02/25 08:59 Last Admin: 12/03/24 09:04 Dose: 1,000 mcg Dextrose (Dextrose 50% 50 Ml Syringe) 25 - 50 ml IV UD PRN; Protocol PRN Reason: Hypoglycemia Protocol Stop: 01/01/25 18:59 Ezetimibe (Ezetimibe 10 Mg Tab) 10 mg PO QAM JARON Stop: 01/02/25 08:59 Last Admin: 12/03/24 09:05 Dose: 10 mg Glucagon (Glucagon For Inj 1 Mg Vial) 1 mg SQ UD PRN; Protocol PRN Reason: Hypoglycemia Protocol Stop: 01/01/25 18:59 Glucose (Glucose 40% Gel 15 Gm Tube) 15 - 30 gm PO UD PRN; Protocol PRN Reason: Hypoglycemia Protocol Stop: 01/01/25 18:59 Glucose (Glucose 10 Tab/Tube) 4 - 8 tab PO UD PRN; Protocol PRN Reason: Hypoglycemia Protocol Stop: 01/01/25 18:59 Guaifenesin (Guaifenesin 600 Mg Tabcr) 1,200 mg PO Q12 PRN PRN Reason: cough Stop: 01/01/25 20:59 Iron Sucrose 200 mg/ Sodium (Chloride) 110 mls @ 220 mls/hr IV TODAY ONE Stop: 12/03/24 11:06 Insulin Aspart (Insulin, Rapid-Acting Pump) 0 each N/A ACHS JARON; Protocol Stop: 01/01/25 20:59 Last Admin: 12/03/24 09:02 Dose: 25 each Insulin Aspart (Insulin Aspart 100 Units/Ml Vial) 0 units SC PRN PRN PRN Reason: Pump Refill Use ONLY Stop: 01/01/25 18:59 Levothyroxine Sodium (Levothyroxine Sodium 100 Mcg Tablet) 100 mcg PO DAILYBB [facility] Stop: 01/02/25 06:29 Last Admin: 12/03/24 05:39 Dose: 100 mcg Melatonin (Melatonin 3 Mg Tab) 3 mg PO HS PRN PRN Reason: Sleep Stop: 01/01/25 16:32 Miscellaneous (Carbohydrates For Hypoglycemia ) 15 - 30 gm PO UD PRN PRN Reason: Hypoglycemia Treatment Stop: 01/01/25 18:59 Multivitamins/Minerals (Cerovite Adv Formula Tab) 1 tab PO QAM [facility] Stop: 01/02/25 08:59 Last Admin: 12/03/24 09:04 Dose: 1 tab Ondansetron HCl (Ondansetron Inj 2 Mg/Ml 2 Ml Vial) 4 mg IV Q6H PRN PRN Reason: Nausea Stop: 01/01/25 16:32 Oxybutynin Chloride (Oxybutynin Chloride Xl 5 Mg Tabcr) 5 mg PO QPM JARON Stop: 01/01/25 20:59 Last Admin: 12/02/24 20:43 Dose: 5 mg Pantoprazole Sodium (Pantoprazole 40 Mg Tab) 40 mg PO HS [facility] Stop: 01/01/25 20:59 Last Admin: 12/02/24 20:43 Dose: 40 mg Polyethylene Glycol (Polyethylene (Miralax) 17 Gm Pack) 17 gm PO DAILY PRN PRN Reason: Constipation Stop: 01/01/25 16:32 Pravastatin Sodium (Pravastatin Sod 20 Mg Tab) 20 mg PO QDD [facility] Stop: 01/01/25 16:32 Last Admin: 12/02/24 18:34 Dose: 20 mg Sertraline HCl (Sertraline Hcl 100 Mg Tablet) 100 mg PO QAM [facility] Stop: 01/02/25 08:59 Last Admin: 12/03/24 09:05 Dose: 100 mg Vitamin D (Cholecalciferol 25 Mcg (1000 Units) Tab) 25 mcg PO DAILY JARON Stop: 01/02/25 08:59 Last Admin: 12/03/24 09:05 Dose: 25 mcg Zolpidem Tartrate (Zolpidem Tartrate 5 Mg Tab) 5 mg PO HS PRN PRN Reason: Sleep Stop: 01/01/25 16:32 Last Admin: 12/02/24 23:13 Dose: 5 mg PG Care Time/CCT Total # of Minutes Spent Total Time Spent with Patient: Total time spent is greater than 50% in coordination of care (as documented) at patient's floor/unit and/or counseling patient: 35 minutes Coding Level of Care Code 78474 SUB INP/OBS CARE 3/50MIN Diagnoses Severe aortic stenosis I35.0 Acute on chronic heart failure with reduced ejection fraction and diastolic dysfunction I50.43 Acute systolic heart failure due to valvular disease I50.21; I38 Heart failure chronicity: acute Heart failure type: systolic Iron deficiency anemia D50.9 (3) Heart failure due to valvular disease Heart failure chronicity: acute Heart failure type: systolic Qualified Code(s): I50.21 - Acute systolic (congestive) heart failure; I38 - Endocarditis, valve unspecified
--- NOTE | 2024-12-03 11:27 | Hospitalist Progress Note ---
Date of Service December 03, 2024 Assessment & Plan (1) Severe aortic stenosis: (2) Acute heart failure with preserved ejection fraction: (3) DM I (diabetes mellitus, type I): (4) Mood disorder: (5) Hyperlipidemia: (6) Hypothyroidism: Plan 74 yo F with PMH with borderline severe aortic valve stenosis as per echo in 12/2023, DM I, hypothyroidism, hyperlipidemia, mood disorder and other medical problems listed below sent over from PCP's office due to worsening SOB, cough a nd congestion over the past few weeks consistent with acute CHF 2/2 severe aortic stenosis. Acute heart failure in setting of severe aortic stenosis Demand ischemia: 2/2 above. SOB x 2 weeks, outpatient CXR from 12/02 with pulm vascular congestion and small bilateral pleural effusions Echo from 2023 showed borderline severe . She is scheduled to see valve clinic as an outpatient in Dec 2024 BNP 1132, HS troponin 30.8 , flat trend in 30s. ECHO this adm: mild global hypokinesis with EF 45-50%, severe aortic stenosis, mild aortic insufficiency, moderate to severe mitral insufficiency and mild tricuspid insufficiency, LA mod. dilated Cardio on board, managing diuresis. Strict I&Os, daily standing weights, low sodium diet labs in AM. Microcytic anemia Hgb 9.2, MCV 70.7 at presentation Iron 24, transferrin sat 6 indicating iron def Her last colonoscopy was 08/2016 and was unremarkable.She denies any blood or black stool ordered b12 and folate level d/w pt re: iv iron, pt agreeable Initiate iv iron, get vit b12 and folate level. DM I A1c 7.5 in August, repeat in AM Uses insulin pump, prefers to continue while inpatient BSG ACHS Hypothyroidism : Continue levothyroxine Hyperlipidemia: Continue statin Mood disorder: Continue buspirone, sertraline DVT Ppx: SQ Lovenox Code status: FULL PCP: Jaylene Dispo: Admitted to PCU Admission and Anticipated Discharge Date Admission Date: December 02, 2024 Subjective Patient was seen and examined at bedside. Patient was sitting up in bed, on room air, NAD, resting comfortably. Patient reports improving shortness of breath with activity and improving cough. Patient reports improved shortness of breath at rest. Patient denies chest pain/shortness/belly pain. Patient updated about iron levels being low and hemoglobin levels being low. We discussed about possibility of iron transfusion while in hospital and possible allergic/anaphylactic reaction and volume overload reactions to iron transfusion given her severe aortic stenosis. Patient was understanding of possible adverse effects she is agreeable to iron transfusion, and i agree since benefits outweighs the risk. Physical Exam Physical Exam: General Appearance: NAD, sitting up in bed, pleasant, conversing easily , on RA Head: normocephalic, atraumatic Eyes: normal inspection, PERRL, conjunctivae normal, anicteric sclerae ENT: external ear and nose normal, oropharynx normal Neck: normal visual inspection Respiratory: normal respiratory effort, bibasilar crackles. No accessory muscle use Cardiovascular: regular rate, rhythm, + ANKIT, normal peripheral pulses, -ve BLE edema Chest: normal inspection of chest Abdomen/GI: normal bowel sounds, soft, nontender, no hepatosplenomegaly Extremities/Musculoskeletal: no cyanosis or clubbing, extremities motor strength 5/5 Neurologic: PERRL, EOMI, accommodation nl, no face palsy, no dysarthria, CN's II-XI intact bilaterally and moves all extremities Psychiatric: A+Ox3, euthymic affect Skin: no rashes, normal color, warm/dry Results & Data Results & Data Vital Signs (Past 12 Hours) Vital Signs Temp Pulse Pulse Resp BP Pulse Ox O2 Del Method 12/03/24 11:07 36.7 C 75 18 126/77 94 Room Air 12/03/24 09:49 Room Air 12/03/24 07:23 71 12/03/24 07:21 36.5 C 87 18 124/72 96 Room Air 12/03/24 02:27 36.5 C 73 16 130/77 95 Room Air
[2024-12-03] MEDS: IRON SUCROSE 200 MG in SODIUM CHLORIDE 0.9% 100 ML IV ONE (11:36)
[2024-12-03] MEDS: FUROSEMIDE 40 MG/4 ML VIAL IV ONE (11:36)
[2024-12-03 12:09] LABS: Folate (Folic Acid),Ser orPlas > 22.30 ng/ml (>5.38)
[2024-12-03 12:10] LABS: Vitamin B12 210 pg/ml (180-914)
[2024-12-03] MEDS: POLYETHYLENE (MIRALAX) 17 GM PACK PO PRN (18:09)
[2024-12-04 06:30] LABS: Hematocrit (blood only) 30.4 % (37.0-47.0); Hemoglobin 9.2 g/dl (12.0-16.0); Mean Corpuscular Hemoglobin 20.9 pg (25.0-34.0); Mean Corpuscular Volume 69.1 fL (80.0-100.0); Platelet Count 241 K/uL (130-400); RDW Standard Deviation 46.7 fL (36.4-46.3); Red Blood Count 4.40 M/uL (4.20-5.40); White Blood Count 4.92 K/ul (4.8-10.8)
[2024-12-04] MEDS: ACETAMINOPHEN 325 MG TAB PO PRN (10:18)
[2024-12-04 10:40] LABS: Anion Gap 10.0 (3-11); Calcium 8.8 mg/dl (8.6-10.3); Carbon Dioxide 24.0 mmol/L (21-32); Chloride 104.0 mmol/L (98-107); Magnesium 2.1 mg/dl (1.7-2.4); Potassium 3.6 mmol/L (3.5-5.1); Sodium 138.0 mmol/L (136-145)
[2024-12-04 10:45] LABS: Blood Urea Nitrogen 10.0 mg/dl (6-23)
[2024-12-04 10:46] LABS: Creatinine Clr Calc Pharmacy 96.0 ml/min; Glucose 150.0 mg/dl (70-99(Fasting))
[2024-12-04] MEDS: METOPROLOL SUCC 25MG EXT REL TAB PO SCH (11:02)
[2024-12-04] MEDS: POTASSIUM CHLORIDE CRTAB 20 MEQ TABCR PO STA (11:03)
--- NOTE | 2024-12-04 11:35 | Cardiology Progress Note ---
Date of Service December 04, 2024 Assessment & Plan (1) Severe aortic stenosis: (2) Acute on chronic heart failure with reduced ejection fraction and diastolic dysfunction: (3) Heart failure due to valvular disease: (4) Iron deficiency anemia: Plan Patient is a 74 year old female admitted to [facility] from PCP office with complaints of dyspnea/cough/volume overload consistent with acute heart failure likely due to severe valvular heart disease/severe . Echo in Dec 2023 demonstrated borderline severe at the time. chest xray as an outpatient yesterday with pulm vascular congestion and small b/l pleural effusions. Echo this admission with severe and mildly reduced LVEF at 45-50% with also moderate/severe MR. Also with significant iron deficiency anemia noted on labs. Recommendations: Patient responded to IV furosemide 40 mg x1 dose yesterday Repeat dose of furosemide 40 mg IV x1 today Monitor I+O's Daily weight with standing scale. Echo yesterday with mildly reduced LVEF with severe . Once volume status has improved, consider cardiac catheterization this admission, due to severe valvular disease and needing future intervention. Consider also starting GDMT with metoprolol and/or ARB/ARNI due to reduced LVEF pending renal function and blood pressure response to diuretics. Recommend treatment of her iron deficiency anemia with possible IV iron. Defer to hospitalist. Patient denies recent issues with blood loss or change in bowel habits. 12/04/2024 74-year-old female with known severe aortic stenosis, calcific presented with decompensated systolic heart failure with mildly reduced ejection fraction, elevated troponin. Patient has responded to IV diuretics with improved clinical status. Renal function stable Plan: Supplement potassium add low-dose beta-thomas., Metoprolol succinate Referred for coronary angiography today given presentation, echo changes and elevated troponin. Patient in process of for evaluation for aortic valve replacement Admission and Anticipated Discharge Date Admission Date: December 02, 2024 Subjective Patient seen and personally examined. Chart, medications, telemetry reviewed. Overall feeling well this morning. Less dyspneic. No dizziness or lightheadedness. N.p.o. for coronary angiography today. "Hungry" Weight down greater than 3 kg. Telemetry with short runs of PAT 4-5 beats in duration. Review of Systems Review of Systems: All systems reviewed & are unremarkable except as noted in Subjective Physical Exam Constitutional: WD/WN, vitals as above no acute distress ENMT: Partial plate Neck: trachea midline, no thyromegaly Respiratory: no labored breathing Auscultation: lungs clear to auscultation bilaterally Cardiovascular: Rate/Rhythm: regular rate and regular rhythm Heart Sounds: + murmur (II-III systolic murmur LSB with radiation to the neck) Vessels: no JVD Extremities: no edema Gastrointestinal (Abdomen): normal bowel sounds, soft, nontender, no hepatosplenomegaly Musculoskeletal: no cyanosis or clubbing, extremities motor strength 5/5 Neurologic: PERRL, EOMI, accommodation nl, no face palsy, no dysarthria Psychiatric: A+Ox3, euthymic affect Results & Data Vital Signs (Past 12 Hours) Vital Signs Temp Pulse Resp BP Pulse Ox O2 Del Method 12/04/24 11:22 36.4 C L 77 18 114/80 96 Room Air 12/04/24 09:00 Room Air 12/04/24 07:27 36.8 C 81 18 136/84 97 Room Air 12/04/24 04:00 36.7 C 75 18 128/77 96 Room Air Laboratory Results Laboratory Results - last 24 hr 12/03/24 12/03/24 12/04/24 05:33 12:11 05:40 WBC 4.92 RBC 4.40 Hgb 9.2 L Hct 30.4 L MCV 69.1 L MCH 20.9 L MCHC 30.3 L RDW Std Deviation 46.7 H RDW Coeff of Kemar 19.2 H Plt Count 241 MPV 10.9 Sodium 138 Potassium 3.6 Chloride 104 Carbon Dioxide 24 Anion Gap 10 BUN 10 Creatinine 0.49 L Est Cr Clr Drug Dosing 96.0 eGFR 97.62 BUN/Creatinine Ratio 20.4 H Glucose 150 H POC Glucose 111 H Calcium 8.8 Magnesium 2.1 Vitamin B12 210 Folate > 22.30 12/04/24 07:58 WBC RBC Hgb Hct MCV MCH MCHC RDW Std Deviation RDW Coeff of Kemar Plt Count MPV Sodium Potassium Chloride Carbon Dioxide Anion Gap BUN Creatinine Est Cr Clr Drug Dosing eGFR BUN/Creatinine Ratio Glucose POC Glucose 135 H Calcium Magnesium Vitamin B12 Folate PG Care Time/CCT Total # of Minutes Spent Total Time Spent with Patient: Total time spent is greater than 50% in coordination of care (as documented) at patient's floor/unit and/or counseling patient: Coding Level of Care Code 20010 SUB INP/OBS CARE 3/50MIN Diagnoses Severe aortic stenosis I35.0 Acute on chronic heart failure with reduced ejection fraction and diastolic dysfunction I50.43 Acute systolic heart failure due to valvular disease I50.21; I38 Heart failure type: systolic Heart failure chronicity: acute Iron deficiency anemia D50.9 (3) Heart failure due to valvular disease Heart failure type: systolic Heart failure chronicity: acute Qualified Code(s): I50.21 - Acute systolic (congestive) heart failure; I38 - Endocarditis, valve unspecified
--- NOTE | 2024-12-04 13:13 | Pre Anesthesia Assessment ---
Date of Service December 04, 2024 Pre Sedation Assessment Vital Signs Temp Pulse Pulse Resp BP Pulse Ox Pulse Ox 12/04/24 12:56 77 18 139/76 96 12/04/24 11:22 36.4 C L 77 18 114/80 96 12/04/24 09:00 12/04/24 07:27 36.8 C 81 18 136/84 97 12/04/24 04:00 36.7 C 75 18 128/77 96 12/03/24 23:33 36.6 C 81 16 107/67 97 12/03/24 23:20 74 12/03/24 19:56 12/03/24 19:38 36.6 C 79 18 128/76 92 12/03/24 17:01 88 12/03/24 16:33 95 12/03/24 15:24 36.3 C L 80 18 139/83 95 O2 Del Method O2 Del Method 12/04/24 12:56 Room Air 12/04/24 11:22 Room Air 12/04/24 09:00 Room Air 12/04/24 07:27 Room Air 12/04/24 04:00 Room Air 12/03/24 23:33 Room Air 12/03/24 23:20 12/03/24 19:56 Room Air 12/03/24 19:38 Room Air 12/03/24 17:01 12/03/24 16:33 Room Air 12/03/24 15:24 Room Air Cardiovascular Additional Comments: RRR, grade 3/6 SM. Respiratory normal respiratory effort, lungs clear to auscultation Pre-Sedation Airway Assessment Smoking Status: Never smoker Short, Thick Neck: No Thyromental Distance: < 3.5 Finger Breadths Oral Cavity: + WNL Mallampati Class: III ASA: ASA3 NPO Status Date of Last Intake of Fluids: 12/03/24 Time of Last Intake of Fluids: 23:00 Date of Last Intake of Solid Food: 12/03/24 Time of Last Intake of Solid Foods: 23:00 Notes The planned sedation has been discussed with the patient. Informed Consent was obtained. I have identified the patient, determined the appropriateness of sedation and have assessed the patient immediately prior to the procedure. All medicine(s) and interventions are by my order. [facility] [place] Procedure Codes (Charges) Indication for Procedure Indication for procedure: valve heart disease.
[2024-12-04] MEDS: niCARdipine 2,000 MCG/20 ML SYR ONE (13:33)
[2024-12-04] MEDS: NITROGLYCERIN/D5W 100MCG/ML 20ML SYR ONE (13:34)
[2024-12-04] MEDS: HEPARIN (PORCINE) 1000 UNIT/ML 10 ML (CATH LAB USE ONLY) ONE (13:49)
[2024-12-04] MEDS: MIDAZOLAM HCL 1 MG/ML 2ML VIAL ONE (13:49)
[2024-12-04] MEDS: OPTIRAY 350 ONE (13:53)
--- NOTE | 2024-12-04 13:55 | Post Anesthesia Assessment ---
Date of Service December 04, 2024 Post Sedation Assessment Vital Signs Temp Pulse Pulse Resp BP Pulse Ox Pulse Ox 12/04/24 12:56 77 18 139/76 96 12/04/24 11:22 36.4 C L 77 18 114/80 96 12/04/24 09:00 12/04/24 07:27 36.8 C 81 18 136/84 97 12/04/24 04:00 36.7 C 75 18 128/77 96 12/03/24 23:33 36.6 C 81 16 107/67 97 12/03/24 23:20 74 12/03/24 19:56 12/03/24 19:38 36.6 C 79 18 128/76 92 12/03/24 17:01 88 12/03/24 16:33 95 12/03/24 15:24 36.3 C L 80 18 139/83 95 O2 Del Method O2 Del Method 12/04/24 12:56 Room Air 12/04/24 11:22 Room Air 12/04/24 09:00 Room Air 12/04/24 07:27 Room Air 12/04/24 04:00 Room Air 12/03/24 23:33 Room Air 12/03/24 23:20 12/03/24 19:56 Room Air 12/03/24 19:38 Room Air 12/03/24 17:01 12/03/24 16:33 Room Air 12/03/24 15:24 Room Air Recovery Score Activity: Moves 4 extremities Respiration: Deep Breath/Cough Circulation: +/-20% PreAnes Value Consciousness: Fully Awake Oxygen Saturation: > 92% On Room Air Discharge Sedation Level of Care: Fast Track Phase II Post Sedation Plan On clinical assessment, the patient appears to have tolerated the sedation without complications. Patient is recovering as anticipated. Patient will continue to be monitored by nursing and may be discharged when sedation discharge criteria are met per below protocol. Upon Completions of procedure up to 15 minutes continue every 5 minute vital signs and the P.A.R. score; then discharge to a Phase I or Fast Track to Phase I I per the following guidelines: * Discharge Patient to appropriate Phase II area if PAR is 8 or greater or return to pre- procedure baseline. The post - procedure orders will be as directed. * If PAR score is less than 8 or not return to pre-procedure baseline then patient will follow Phase I monitoring till PAR is reached for Phase II. The Phase I may be done in procedure room or may call to secure a Phase I area. * If naloxone or flumazenil are used for reversal, hold in Phase I for continued monitoring from when last reversal dose was given for a minimum of 60 minutes or longer pending the nurse and/or physician discretion of patient condition before discharge to Phase II. Please call the Sedation Physician to re-evaluate and complete post-note for discharge to Phase II area. Do NOT discharge from procedure sedation or Phase 1 until post- sedation evaluation note is complete by procedure /sedation MD Sedation Discharge Instructions to be given to the patient at discharge to home.
--- NOTE | 2024-12-04 14:22 | Hospitalist Progress Note ---
Date of Service December 04, 2024 Assessment & Plan (1) Severe aortic stenosis: (2) Acute heart failure with preserved ejection fraction: (3) DM I (diabetes mellitus, type I): (4) Mood disorder: (5) Hyperlipidemia: (6) Hypothyroidism: Plan 74 yo F with PMH with borderline severe aortic valve stenosis as per echo in 12/2023, DM I, hypothyroidism, hyperlipidemia, mood disorder and other medical problems listed below sent over from PCP's office due to worsening SOB, cough a nd congestion over the past few weeks consistent with acute CHF 2/2 severe aortic stenosis. Acute heart failure in setting of severe aortic stenosis Demand ischemia: 2/2 above. SOB x 2 weeks, outpatient CXR from 12/02 with pulm vascular congestion and small bilateral pleural effusions Echo from 2023 showed borderline severe . She is scheduled to see valve clinic as an outpatient in Dec 2024 BNP 1132, HS troponin 30.8 , flat trend in 30s. ECHO this adm: mild global hypokinesis with EF 45-50%, severe aortic stenosis, mild aortic insufficiency, moderate to severe mitral insufficiency and mild tricuspid insufficiency, LA mod. dilated Cardio on board, managing diuresis. Cath planned today. Strict I&Os, daily standing weights, low sodium diet labs in AM. Microcytic anemia Hgb 9.2, MCV 70.7 at presentation Iron 24, transferrin sat 6 indicating iron def Her last colonoscopy was 08/2016 and was unremarkable.She denies any blood or black stool wnl b12 and folate level Iv iron on 12/03, administer 12/04 f/u w/ PO iron on dc. Repeat levels in 3 months. DM I A1c 7.5 in August, repeat in AM Uses insulin pump, prefers to continue while inpatient BSG ACHS Hypothyroidism : Continue levothyroxine Hyperlipidemia: Continue statin Mood disorder: Continue buspirone, sertraline DVT Ppx: SQ Lovenox Code status: FULL PCP: Jaylene Dispo: Admitted to PCU Admission and Anticipated Discharge Date Admission Date: December 02, 2024 Subjective Patient was seen and examined at bedside. Patient was sitting up in bed, on room air, NAD, resting comfortably. Patient reports improving shortness of breath, denies chest pain or light headedness. Physical Exam Physical Exam: General Appearance: NAD, sitting up in bed, pleasant, conversing easily , on RA Head: normocephalic, atraumatic Eyes: normal inspection, PERRL, conjunctivae normal, anicteric sclerae ENT: external ear and nose normal, oropharynx normal Neck: normal visual inspection Respiratory: normal respiratory effort, bibasilar crackles. No accessory muscle use Cardiovascular: regular rate, rhythm, + ANKIT, normal peripheral pulses, -ve BLE edema Chest: normal inspection of chest Abdomen/GI: normal bowel sounds, soft, nontender, no hepatosplenomegaly Extremities/Musculoskeletal: no cyanosis or clubbing, extremities motor strength 5/5 Neurologic: PERRL, EOMI, accommodation nl, no face palsy, no dysarthria, CN's II-XI intact bilaterally and moves all extremities Psychiatric: A+Ox3, euthymic affect Skin: no rashes, normal color, warm/dry Results & Data Results & Data Vital Signs (Past 12 Hours) Vital Signs Temp Pulse Resp BP Pulse Ox O2 Del Method 12/04/24 14:15 77 18 122/78 93 Room Air 12/04/24 14:00 79 18 129/75 92 Room Air 12/04/24 12:56 77 18 139/76 96 Room Air 12/04/24 11:22 36.4 C L 77 18 114/80 96 Room Air 12/04/24 09:00 Room Air 12/04/24 07:27 36.8 C 81 18 136/84 97 Room Air 12/04/24 04:00 36.7 C 75 18 128/77 96 Room Air
--- NOTE | 2024-12-04 14:55 | Communication Note ---
Date of Service: December 04, 2024 Patient seen and examined postcardiac catheterization. Tolerated procedure well. Right radial access site with HemoBand in place. No chest pain or shortness of breath. Presenting symptoms of dyspnea and orthopnea resolved Coronary angiography demonstrates moderate diffuse coronary atherosclerosis, nonobstructive.. Distal left circumflex obtuse marginal branch with stenotic lesion but small vessel New onset congestive heart failure in the setting of severe calcific aortic stenosis. Mildly reduced ejection fraction with moderate mitral tricuspid insufficiency Moderate coronary atherosclerosis without indication for revascularization. Recommendations: Ambulate this evening and observe on telemetry overnight Continue metoprolol succinate 12.5 mg/day Continue furosemide 20 mg p.o. daily 5 days/week Potassium chloride 10 mg p.o. daily. CHF Daily instructions May warrant further investigation of microcytic anemia Patient to complete TAVR evaluation as outpatient scheduled
[2024-12-04] MEDS: IRON SUCROSE 400 MG in SODIUM CHLORIDE 0.9% 250 ML IV ONE (15:18)
[2024-12-04] MEDS: Continuous Glucose Monitor SCH (15:54)
[2024-12-05 00:17] VITALS: RESP 18
[2024-12-05 06:43] LABS: Hematocrit (blood only) 33.5 % (37.0-47.0); Hemoglobin 9.8 g/dl (12.0-16.0); Mean Corpuscular Hemoglobin 20.6 pg (25.0-34.0); Mean Corpuscular Volume 70.5 fL (80.0-100.0); Platelet Count 263 K/uL (130-400); RDW Standard Deviation 47.7 fL (36.4-46.3); Red Blood Count 4.75 M/uL (4.20-5.40); White Blood Count 6.31 K/ul (4.8-10.8)
[2024-12-05 06:59] LABS: Anion Gap 5.0 (3-11); Blood Urea Nitrogen 11.0 mg/dl (6-23); Calcium 9.0 mg/dl (8.6-10.3); Carbon Dioxide 28.0 mmol/L (21-32); Chloride 105.0 mmol/L (98-107); Creatinine Clr Calc Pharmacy 87.1 ml/min; Glucose 105.0 mg/dl (70-99(Fasting)); Potassium 4.4 mmol/L (3.5-5.1); Sodium 138.0 mmol/L (136-145)
[2024-12-05 07:30] VITALS: PULSE 78; TEMP 98.2; O2SAT 96
[2024-12-05] MEDS: CALCIUM CARBONATE 500 MG CHEWABLE TAB PO PRN (09:00)
[2024-12-05] MEDS: FUROSEMIDE 20 MG TAB PO SCH (10:56)
--- NOTE | 2024-12-05 10:58 | Cardiology Progress Note ---
Date of Service December 05, 2024 Assessment & Plan (1) Severe aortic stenosis: (2) Acute on chronic heart failure with reduced ejection fraction and diastolic dysfunction: (3) Heart failure due to valvular disease: (4) Iron deficiency anemia: (5) Atrial tachycardia, paroxysmal: Plan Patient is a 74 year old female admitted to [facility] from PCP office with complaints of dyspnea/cough/volume overload consistent with acute heart failure likely due to severe valvular heart disease/severe . Echo in Dec 2023 demonstrated borderline severe at the time. chest xray as an outpatient yesterday with pulm vascular congestion and small b/l pleural effusions. Echo this admission with severe and mildly reduced LVEF at 45-50% with also moderate/severe MR. Also with significant iron deficiency anemia noted on labs. Patient responded to IV furosemide 40 mg x1 dose yesterday Repeat dose of furosemide 40 mg IV x1 today Monitor I+O's Daily weight with standing scale. Echo yesterday with mildly reduced LVEF with severe . Once volume status has improved, consider cardiac catheterization this admission, due to severe valvular disease and needing future intervention. Consider also starting GDMT with metoprolol and/or ARB/ARNI due to reduced LVEF pending renal function and blood pressure response to diuretics. Recommend treatment of her iron deficiency anemia with possible IV iron. Defer to hospitalist. Patient denies recent issues with blood loss or change in bowel habits. 12/04/2024 74-year-old female with known severe aortic stenosis, calcific presented with decompensated systolic heart failure with mildly reduced ejection fraction, elevated troponin. Patient has responded to IV diuretics with improved clinical status. Renal function stable Plan: Supplement potassium add low-dose beta-thomas., Metoprolol succinate Referred for coronary angiography today given presentation, echo changes and elevated troponin. Patient in process of for evaluation for aortic valve replacement 12/05/24: Patient underwent cardiac cath yesterday which demonstrated moderate diffuse coronary atherosclerosis, nonobstructive.. Distal left circumflex obtuse marginal branch with stenotic lesion but small vessel. Med management recommended. Tolerated procedure without issue. Stable renal function this morning. Cath site healing. Volume status improved from admission. Recommendations: Stable for discharge today Recommend continuing metoprolol succinate 12.5 mg daily on discharge (new) Recommend furosemide 20 mg 5 days per week with potassium 10 meq daily Would avoid EDWARD/ARB/ARNI given severe . Continue statin and zetia for mild/moderate CAD. Mildly reduced LVEF - continue metoprolol. Consider adding spironolactone and Jardiance in the future. Patient has allergy to ASA. Patient to have f/u with Valve clinic as outpatient. Per hospitalist - patient to see hematology and GI for further anemia work up as outpatient. Discussed with hospitalist. Will arrange cardio and valve f/u upon discharge. Should also f/u with PCP and then GI/hematology. Case discussed with Dr. Watkins I spent a total of 35 minutes on the date of service in preparation, delivery, and documentation of the care provided to this patient, excluding any time spent in the performance of separately billed services. Briseida Gutierrez PA-C Department of Cardiology, [facility] This chart was completed in part utilizing Speech Voice Recognition Software. Grammatical errors, random word insertions, pronoun errors, and incomplete sentences are an occasional consequence of this system due to software limitations, ambient noise, and hardware issues. Any formal questions or concerns about the content, text, or information contained within the body of this dictation should be directly addressed to the provider for clarification. Admission and Anticipated Discharge Date Admission Date: December 02, 2024 Supervising Physician Co-Signing Physician Notes I have personally performed a history and physical examination on the patient. I have reviewed the advance practitioner's documentation, and I agree with, and take responsibility for the plan of care. 74-year-old female with severe aortic valve stenosis and moderate, nonobstructive coronary artery disease. Continue beta-thomas therapy, statin, furosemide 4 days/week, and low-dose aspirin. Outpatient valve clinic evaluation. Questions answered to patient satisfaction. No further inpatient testing or intervention recommended at this time. Ritesh Watkins DO, [facility] I spent a total of 25 minutes on the date of service in preparation, delivery, and documentation of the care provided to this patient, excluding any time spent in the performance of separately billed services. Subjective Patient resting in chair. Feeling well this morning from cardiac standpoint. No chest pain. SOB greatly improved from admission. Abdominal bloating improved. Still reports mild residual cough. Cath site without drainage. No pain Review of Systems Review of Systems: All systems reviewed & are unremarkable except as noted in HPI & below Physical Exam Constitutional: WD/WN, vitals as above no acute distress Respiratory: no labored breathing Auscultation: + diminished lung sounds; no crackles (B/L) Cardiovascular: Rate/Rhythm: regular rate and regular rhythm Heart Sounds: + murmur (II-III systolic murmur LSB with radiation to the neck) Vessels: + JVD Extremities: no edema (1+ b/l edema) Gastrointestinal (Abdomen): normal bowel sounds, soft, nontender, no hepatosplenomegaly Musculoskeletal: no cyanosis or clubbing, extremities motor strength 5/5 Neurologic: PERRL, EOMI, accommodation nl, no face palsy, no dysarthria Psychiatric: A+Ox3, euthymic affect Results & Data Vital Signs (Past 12 Hours) Vital Signs Temp Pulse Pulse Resp BP Pulse Ox O2 Del Method 12/05/24 07:28 36.8 C 78 18 124/82 96 Room Air 12/05/24 02:38 36.7 C 69 18 113/71 97 Room Air 12/04/24 23:32 36.3 C L 85 18 119/84 93 Room Air 12/04/24 23:25 83 Laboratory Results CBC 12/05/24 Range/Units 05:53 WBC 6.31 (4.8-10.8) K/ul RBC 4.75 (4.20-5.40) M/uL Hgb 9.8 L (12.0-16.0) g/dl Hct 33.5 L (37.0-47.0) % Plt Count 263 (130-400) K/uL Comprehensive Metabolic Panel 12/05/24 Range/Units 05:53 Sodium 138 (136-145) mmol/L Potassium 4.4 D (3.5-5.1) mmol/L Chloride 105 (98-107) mmol/L Carbon Dioxide 28 (21-32) mmol/L BUN 11 (6-23) mg/dl Creatinine 0.54 L (0.6-1.2) mg/dl Glucose 105 H (70-99(Fasting)) mg/dl Calcium 9.0 (8.6-10.3) mg/dl Intake and Output 12/04/24 12/05/24 12/05/24 22:59 06:59 14:59 Intake Total 1080 / 1380 300 / 1380 Balance 1080 / 780 300 / 780 Intake: IV 270 / 270 Iron Sucrose 400 mg In Sodium 270 / 270 Chloride 0.9% 250 ml @ 108 mls/ hr IV TODAY ONE Rx#:[id number] Oral 810 / 1110 300 / 1110 Other: # Unmeasured Voids 2 2 Weight 84 kg Diagnostic Findings Telemetry reviewed: NSR with PAC's. CBC 12/05/24 Range/Units 05:53 WBC 6.31 (4.8-10.8) K/ul RBC 4.75 (4.20-5.40) M/uL Hgb 9.8 L (12.0-16.0) g/dl Hct 33.5 L (37.0-47.0) % Plt Count 263 (130-400) K/uL Comprehensive Metabolic Panel 12/05/24 Range/Units 05:53 Sodium 138 (136-145) mmol/L Potassium 4.4 D (3.5-5.1) mmol/L Chloride 105 (98-107) mmol/L Carbon Dioxide 28 (21-32) mmol/L BUN 11 (6-23) mg/dl Creatinine 0.54 L (0.6-1.2) mg/dl Glucose 105 H (70-99(Fasting)) mg/dl Calcium 9.0 (8.6-10.3) mg/dl Intake and Output 12/04/24 12/05/24 12/05/24 22:59 06:59 14:59 Intake Total 1080 / 1380 300 / 1380 Balance 1080 / 780 300 / 780 Intake: IV 270 / 270 Iron Sucrose 400 mg In Sodium 270 / 270 Chloride 0.9% 250 ml @ 108 mls/ hr IV TODAY ONE Rx#:[id number] Oral 810 / 1110 300 / 1110 Other: # Unmeasured Voids 2 2 Weight 84 kg Medications Administered Current Inpatient Medications Acetaminophen (Acetaminophen 325 Mg Tab) 650 mg PO Q4H PRN PRN Reason: Pain or Fever Stop: 01/01/25 16:32 Last Admin: 12/04/24 10:18 Dose: 650 mg Buspirone HCl (Buspirone 5 Mg Tab) 5 mg PO BID JARON Stop: 01/01/25 20:59 Last Admin: 12/05/24 08:33 Dose: 5 mg Calcium Carbonate (Calcium Carbonate 500 Mg Chewable Tab) 1,000 mg PO Q8H PRN PRN Reason: Indigestion Stop: 01/02/25 10:37 Last Admin: 12/05/24 09:00 Dose: 1,000 mg Cyanocobalamin (Cyanocobalamin (B-12) 500 Mcg Tablet) 1,000 mcg PO DAILY [facility] Stop: 01/02/25 08:59 Last Admin: 12/05/24 08:33 Dose: 1,000 mcg Dextrose (Dextrose 50% 50 Ml Syringe) 25 - 50 ml IV UD PRN; Protocol PRN Reason: Hypoglycemia Protocol Stop: 01/01/25 18:59 Ezetimibe (Ezetimibe 10 Mg Tab) 10 mg PO QAM [facility] Stop: 01/02/25 08:59 Last Admin: 12/05/24 08:33 Dose: 10 mg Furosemide (Furosemide 20 Mg Tab) 20 mg PO [id number] [facility] Stop: 01/04/25 10:29 Last Admin: 12/05/24 10:56 Dose: 20 mg Glucagon (Glucagon For Inj 1 Mg Vial) 1 mg SQ UD PRN; Protocol PRN Reason: Hypoglycemia Protocol Stop: 01/01/25 18:59 Glucose (Glucose 40% Gel 15 Gm Tube) 15 - 30 gm PO UD PRN; Protocol PRN Reason: Hypoglycemia Protocol Stop: 01/01/25 18:59 Glucose (Glucose 10 Tab/Tube) 4 - 8 tab PO UD PRN; Protocol PRN Reason: Hypoglycemia Protocol Stop: 01/01/25 18:59 Guaifenesin (Guaifenesin 600 Mg Tabcr) 1,200 mg PO Q12 PRN PRN Reason: cough Stop: 01/01/25 20:59 Insulin Aspart (Insulin, Rapid-Acting Pump) 0 each N/A ACHS [facility]; Protocol Stop: 01/01/25 20:59 Last Admin: 12/04/24 21:30 Dose: 20 each Insulin Aspart (Insulin Aspart 100 Units/Ml Vial) 0 units SC PRN PRN PRN Reason: Pump Refill Use ONLY Stop: 01/01/25 18:59 Levothyroxine Sodium (Levothyroxine Sodium 100 Mcg Tablet) 100 mcg PO DAILYBB [facility] Stop: 01/02/25 06:29 Last Admin: 12/05/24 06:05 Dose: 100 mcg Melatonin (Melatonin 3 Mg Tab) 3 mg PO HS PRN PRN Reason: Sleep Stop: 01/01/25 16:32 Metoprolol Succinate (Metoprolol Succ 25mg Ext Rel Tab) 12.5 mg PO QAM JARON Stop: 01/03/25 10:59 Last Admin: 12/05/24 08:34 Dose: 12.5 mg Miscellaneous (Carbohydrates For Hypoglycemia ) 15 - 30 gm PO UD PRN PRN Reason: Hypoglycemia Treatment Stop: 01/01/25 18:59 Miscellaneous (Continuous Glucose Monitor) 0 each N/A ACHS JARON Stop: 01/03/25 11:29 Last Admin: 12/04/24 21:35 Dose: 20 each Multivitamins/Minerals (Cerovite Adv Formula Tab) 1 tab PO QAM JARON Stop: 01/02/25 08:59 Last Admin: 12/05/24 08:33 Dose: 1 tab Ondansetron HCl (Ondansetron Inj 2 Mg/Ml 2 Ml Vial) 4 mg IV Q6H PRN PRN Reason: Nausea Stop: 01/01/25 16:32 Oxybutynin Chloride (Oxybutynin Chloride Xl 5 Mg Tabcr) 5 mg PO QPM JARON Stop: 01/01/25 20:59 Last Admin: 12/04/24 21:35 Dose: 5 mg Pantoprazole Sodium (Pantoprazole 40 Mg Tab) 40 mg PO HS JARON Stop: 01/01/25 20:59 Last Admin: 12/04/24 21:35 Dose: 40 mg Polyethylene Glycol (Polyethylene (Miralax) 17 Gm Pack) 17 gm PO DAILY PRN PRN Reason: Constipation Stop: 01/01/25 16:32 Last Admin: 12/03/24 18:09 Dose: 17 gm Potassium Chloride (Potassium Chloride Crtab 20 Meq Tabcr) 10 meq PO QAM JARON Stop: 01/05/25 08:59 Pravastatin Sodium (Pravastatin Sod 20 Mg Tab) 20 mg PO QDD JARON Stop: 01/01/25 16:32 Last Admin: 12/04/24 17:46 Dose: 20 mg Sertraline HCl (Sertraline Hcl 100 Mg Tablet) 100 mg PO QAM JARON Stop: 01/02/25 08:59 Last Admin: 12/05/24 08:33 Dose: 100 mg Vitamin D (Cholecalciferol 25 Mcg (1000 Units) Tab) 25 mcg PO DAILY JARON Stop: 01/02/25 08:59 Last Admin: 12/05/24 08:34 Dose: 25 mcg Zolpidem Tartrate (Zolpidem Tartrate 5 Mg Tab) 5 mg PO HS PRN PRN Reason: Sleep Stop: 01/01/25 16:32 Last Admin: 12/04/24 22:55 Dose: 5 mg PG Care Time/CCT Total # of Minutes Spent Total Time Spent with Patient: Total time spent is greater than 50% in coordination of care (as documented) at patient's floor/unit and/or counseling patient: 35 minutes Coding Level of Care Code 29974 SUB INP/OBS CARE 3/50MIN Diagnoses Severe aortic stenosis I35.0 Acute on chronic heart failure with reduced ejection fraction and diastolic dysfunction I50.43 Acute systolic heart failure due to valvular disease I50.21; I38 Heart failure chronicity: acute Heart failure type: systolic Iron deficiency anemia D50.9 Atrial tachycardia, paroxysmal I47.19 (3) Heart failure due to valvular disease Heart failure chronicity: acute Heart failure type: systolic Qualified Code(s): I50.21 - Acute systolic (congestive) heart failure; I38 - Endocarditis, valve unspecified
--- NOTE | 2024-12-05 11:17 | Discharge Summary ---
Date of Service December 05, 2024 Admission HPI Per Admitting Provider Patient is a 74 yo F with PMH with borderline severe aortic valve stenosis as per echo in 12/2023, DM I, hypothyroidism, hyperlipidemia, mood disorder and other medical problems listed below sent over from PCP's office due to worsening SOB, cough and congestion over the past few weeks. Was seen in urgent care and treated for a UTI with a Z-Pack, which she has completed. Cough and SOB persisted, so she had a CXR yesterday as an outpatient which demonstrated pulm vascular congestion and small bilateral pleural effusions. Reports 10 lb weight gain over the last few weeks as well. She went to see PCP today and due to concerns for volume overload 2/2 valvular heart disease, she was sent to the ER. Was seen in ER and underwent echo and was ordered 40mg IV Lasix x 1 by cardiology service. No F/C, lightheadedness, CP, N/V, abd pain, dysuria, diarrhea or constipation. Patient with known severe aortic stenosis - echo from 2023 showed borderline severe . She is scheduled to see valve clinic as an outpatient in Dec 2024. Is compliant with all medications. Admission Exam Per Admitting Provider General Appearance: WD/WN, vitals as above, NAD, sitting up in bed, pleasant, conversing easily Head: normocephalic, atraumatic Eyes: normal inspection, PERRL, conjunctivae normal, anicteric sclerae ENT: external ear and nose normal, oropharynx normal Neck: normal visual inspection Respiratory: normal respiratory effort, bibasilar rales. No accessory muscle use Cardiovascular: regular rate, rhythm, + ANKIT, normal peripheral pulses, 1+ BLE edema, +JVD Chest: normal inspection of chest Abdomen/GI: normal bowel sounds, soft, nontender, no hepatosplenomegaly Extremities/Musculoskeletal: no cyanosis or clubbing, extremities motor strength 5/5 Neurologic: PERRL, EOMI, accommodation nl, no face palsy, no dysarthria, CN's II-XI intact bilaterally and moves all extremities Psychiatric: A+Ox3, euthymic affect Skin: no rashes, normal color, warm/dry Principal Diagnosis Acute heart failure in setting of severe aortic stenosis Demand ischemia Microcytic anemia Discharge Exam General Appearance: NAD, sitting up in bed, pleasant, conversing easily , on RA Head: normocephalic, atraumatic Eyes: normal inspection, PERRL, conjunctivae normal, anicteric sclerae ENT: external ear and nose normal, oropharynx normal Neck: normal visual inspection Respiratory: normal respiratory effort, no crackles. No accessory muscle use Cardiovascular: regular rate, rhythm, + ANKIT, normal peripheral pulses, -ve BLE edema Chest: normal inspection of chest Abdomen/GI: normal bowel sounds, soft, nontender, no hepatosplenomegaly Extremities/Musculoskeletal: no cyanosis or clubbing, extremities motor strength 5/5 Neurologic: PERRL, EOMI, accommodation nl, no face palsy, no dysarthria, CN's II-XI intact bilaterally and moves all extremities Psychiatric: A+Ox3, euthymic affect Skin: no rashes, normal color, warm/dry Discharge Data Allergies Allergy/AdvReac Type Severity Reaction Status Date / Time aspirin Allergy Intermediate Hives Verified 12/02/24 15:20 salicylates Allergy Intermediate Hives Verified 12/02/24 15:20 codeine Allergy Unknown NOT ON Verified 12/02/24 15:20 [facility], CAN'T REMEMBER atorvastatin AdvReac Intermediate Nausea and Verified 12/02/24 15:20 body aches bupropion AdvReac Intermediate Dizziness,ringing Verified 12/02/24 15:20 in ear and irritable lisinopril AdvReac Intermediate COUGH/SORE Verified 12/02/24 15:20 THROAT metformin AdvReac Intermediate Diarrhea Verified 12/02/24 15:20 morphine AdvReac Intermediate NAUSEA/VOMI Verified 12/02/24 15:20 TING Consultations 12/02/24 15:10 ED Decision to Admit Stat 12/02/24 16:43 Consult Cardiology Routine Procedures Performed Operation Date: 12/04/24 12:30 Actual Procedures p Cineradiography w/Routine Exam - Freddy Steele MD, PhD p Cath, Coronaries ONLY (no LV) - Freddy Steele MD, PhD Ordered Studies 12/04/24 11:05 CL Cath Imgs for PACS use only Stat Hospital Course (1) Severe aortic stenosis: (2) Acute heart failure with preserved ejection fraction: (3) DM I (diabetes mellitus, type I): (4) Mood disorder: (5) Hyperlipidemia: (6) Hypothyroidism: Plan 74 yo F with PMH with borderline severe aortic valve stenosis as per echo in 12/2023, DM I, hypothyroidism, hyperlipidemia, mood disorder and other medical problems listed below sent over from PCP's office due to worsening SOB, cough and congestion over the past few weeks consistent with acute CHF 2/2 severe aortic stenosis. Acute heart failure in setting of severe aortic stenosis Demand ischemia: 2/2 above. SOB x 2 weeks, outpatient CXR from 12/02 with pulm vascular congestion and small bilateral pleural effusions Echo from 2023 showed borderline severe . She is scheduled to see valve clinic as an outpatient in Dec 2024 BNP 1132, HS troponin 30.8 , flat trend in 30s. ECHO this adm: mild global hypokinesis with EF 45-50%, severe aortic stenosis, mild aortic insufficiency, moderate to severe mitral insufficiency and mild tricuspid insufficiency, LA mod. dilated Cardio on board, GDMT optimized. s/p cath - moderate diffuse coronary atherosclerosis, nonobstructive c/w HH diet, low sodium diet f/u w/ valve clinic and cardio on dc. Microcytic anemia Hgb 9.2, MCV 70.7 at presentation Iron 24, transferrin sat 6 indicating iron def Her last colonoscopy was 08/2016 and was unremarkable.She denies any blood or black stool Her MCV from mar 2023 is 82.5 wnl b12 and folate level Iv iron on 12/03 & 12/04 Hb improving Pt advised to f/u w/ GI and then possibly hematology as OP. Repeat levels in 3 months. DM I A1c 7.5 in August, repeat in AM Uses insulin pump, prefers to continue while inpatient BSG ACHS Hypothyroidism : Continue levothyroxine Hyperlipidemia: Continue statin Mood disorder: Continue buspirone, sertraline DVT Ppx: SQ Lovenox Code status: FULL PCP: Jaylene Dispo: Admitted to PCU Patient is being discharged home with following instructions at the point of discharge: Follow-up with your primary care physician within a week time and likely you will need labs CBC/CMP/magnesium/phosphorus. You were evaluated for acute heart failure and severe aortic stenosis. Follow- up with your evaluation for aortic valve replacement. Follow-up with cardiology in 2 to 4 weeks time of discharge. For your anemia, you will need GI physician and hematological evaluation. Coordinate with your PCP office to set up the referral. Follow-up on iron levels and vitamin B12/folate levels in about 3 months time. Coordinate with your PCP office to set up the test. Take your medications as prescribed. Please make sure that you are able to get your medications today by calling your pharmacy before you leave the hospital so that your treatment continuity is not broken. Home Health Attestation I certify that this patient is under my care and that I, or a physicians a ssistant working with me, had a face to-face encounter that meets the home health [id number] encounter requirements with this patient. The encounter with the patient was in whole, or in part, for the following medical condition, which is the primary reason for home health care (list medical condition): I certify that, based on my findings, the following services are medically necessary home health services: My clinical findings support the need for the above services because: Further, I certify that my clinical findings support that this patient is homebound (i.e. absences from home require considerable and taxing effort and are for medical reasons or anabaptism services or infrequently or of short duration when for other reasons) because: Certification for Home Health Services: Based on the above findings, I certify that this patient is confined to the home and needs intermittent senior care care, physical therapy and/or speech therapy or continues to need occupational therapy. The patient is under my care, and I have initiated the establishment of the plan of care. This patient will be followed by a physician who will periodically review the plan of care. Total Time Total Time Spent Total Time Spent (In Minutes): 45 Discharge Plan Discharge Items Patient Disposition: Home - Self-Care Reason For Visit: ACUT HFrEF, SEVERE AORTIC STENOSIS Discharge Diagnosis: Acute heart failure in setting of severe aortic stenosis Demand ischemia Microcytic anemia Condition on Discharge: Serious Activity: Resume your previous activity Non-emergency contact: Primary Care Provider Call non-emergency contact if: you have any medication questions Follow-up/Referrals: Tosha Mariee DO [Primary Care Provider] - (The office will call you with a follow up appointment.) Diet: Carb Count or DM1 and Low Sodium (2gm) Addtl Attending Provider Instructions: Follow-up with your primary care physician within a week time and likely you will need labs CBC/CMP/magnesium/phosphorus. You were evaluated for acute heart failure and severe aortic stenosis. Follow- up with your evaluation for aortic valve replacement. Follow-up with cardiology in 2 to 4 weeks time of discharge. For your anemia, you will need GI physician and hematological evaluation. Coordinate with your PCP office to set up the referral. Follow-up on iron levels and vitamin B12/folate levels in about 3 months time. Coordinate with your PCP office to set up the test. Take your medications as prescribed. Please make sure that you are able to get your medications today by calling your pharmacy before you leave the hospital so that your treatment continuity is not broken. Pending Studies at Discharge: No Stand-Alone Forms: My [facility] [employer], Smoking Cessation Medications and DC Order Prescriptions: New metoprolol succinate 25 mg Tablet Extended Release 24 Hr 12.5 mg PO QAM Qty: 15 0RF potassium chloride 20 mEq Tablet,Er Particles/Crystals 10 meq PO QAM Qty: 30 0RF furosemide 20 mg Tablet 20 mg PO SuMoWeFrSa@0900 Qty: 30 0RF ferrous gluconate 324 mg (38 mg iron) tablet 324 mg PO DAILY Qty: 30 0RF Continued buspirone 5 mg tablet 5 mg PO BID sertraline 100 mg tablet 100 mg PO QAM cyanocobalamin (vitamin B-12) [Vitamin B-12] 1,000 mcg Tablet 1,000 mcg PO DAILY levothyroxine 100 mcg tablet 100 mcg PO DAILYBB benzonatate 100 mg capsule 100 mg PO TID PRN (Reason: Cough) insulin aspart U-100 100 unit/mL solution 0 sliding scale dose continuous subcutaneous infusion CONTINOUS MDD 80 UNITS/DAILY Rx Instructions: insulin pump pantoprazole 40 mg tablet,delayed release (DR/EC) 40 mg PO HS oxybutynin chloride 5 mg tablet extended release 24hr 5 mg PO QPM pravastatin 20 mg tablet 20 mg PO QDD zolpidem 5 mg tablet 5 mg PO HS PRN (Reason: Sleep) cholecalciferol (vitamin D3) [Vitamin D3] 25 mcg (1,000 unit) Capsule 25 mcg PO DAILY ezetimibe 10 mg tablet 10 mg PO QAM PreserVision AREDS-2 250-90-40-1 mg Capsule 2 tab PO QAM Discharge Orders: Discharge Order (Routine); Ordered 12/05/24 Ordered By: Valeria Munoz Admission Data Admit Date/Time: 12/02/24 15:31 Attending Provider: Valeria Munoz Admit Provider: Margaria,Iraj J. Primary Care Provider: Tosha Mariee Other Providers: Iraj Cazares; Jarod Murrell
[2024-12-05 11:22] VITALS: BP 123/83
--- NOTE | 2024-12-05 16:59 | Cardiac Catheterization ---
[facility] Data: Meal Miller Cardiac Status Clinical evaluation leading to the procedure CAD Presenation: Sx unlikely to be ischemic Anginal Classification: CCS IV Heart Failure: NYHA Class: CCS IV Cardiogenic Shock within 24 Hours: No Cardiac Arrest within 24 Hours: No Imaging Studies Past 6 Months: Yes Stress Studies Past 6 Months: No Coronary Anatomy Dominant: Right Left Main (% Stenosis): Distal (Up to 40%) LAD (% Stenosis): Proximal (50% focal), Mid (Diffuse 40%) and Distal (Early 40%) D1 (% Stenosis): Ostial (90% (small vessel)) D2 (% Stenosis): Normal Circumflex (% Stenosis): Ostial (40%) OM1 (% Stenosis): Normal L PL1 (% Stenosis): Normal RCA (% Stenosis): Proximal (Luminal irregularities) R PDA (% Stenosis): Normal R PL1 (% Stenosis): Normal Diagnostic Physicians Name: Freddy Steele MD, PhD Closure Device Percutaneous Entry Location: Radial Closure Device: Radial Band Recommendations: Medical Therapy and/or Counseling and Valve Replacement Cardiac Cath Procedure Full Procedure Date December 04, 2024 Pre-Procedure Diagnosis Pre-Procedure Diagnosis: Non STEMI and Valvular Disease AUC Score AUC Score: 07 Post-Procedure Diagnosis Post-Procedure Diagnosis: Moderate CAD Procedure(s) Performed Procedure(s) Performed: Coronary Angiography Door Manager Freddy Steele MD, PhD Estimated Blood Loss Estimated Blood Loss: 3 cc Medication(s) Medication(s): Fentanyl, Heparin, Lidocaine 1%, Nicardipine, Nitroglycerin and Versed Summary of Findings Brief description: The patient was brought to the cardiac catheterization suite where she was shaved and prepped in a sterile fashion. Sedated using IV Versed and fentanyl. Soft tissues of the right wrist were anesthetized using 2 mL of 1% Xylocaine. The right radial artery was accessed with a modified Seldinger technique and a 6 Brazilian radial artery glide sheath was placed. Patient was provided anticoagulation with IV heparin and antispasmodics including nicardipine and nitroglycerin. All catheters were advanced and exchanged over a 0.035 J-tip wire. Left coronary angiography in orthogonal views with a 5 Brazilian Spearfish 4 diagnostic catheter. Right coronary angiography in orthogonal views with a 5 Brazilian JR4 diagnostic catheter. Diagnostic catheters were removed. Radial artery sheath was removed. Hemostasis was obtained using a TR band. Patient remained hemodynamically stable and asymptomatic. She was returned to the recovery area. This ended the case. Coronary angiography findings: [id number] and relatively short. Bifurcates into the LAD and circumflex. It has diffuse luminal irregularities, calcification, and distally up to 40% focal stenosis before the bifurcation. LAD-this is large caliber and transapical. Gives a small to medium caliber high arising first diagonal and shortly thereafter a large caliber branching second diagonal. Proximal LAD is calcified with up to 50% focal stenosis. After the second diagonal the LAD has a long eccentric stenosis of up to 40% and probably the intervening LAD between D1 and D2 also has 40% stenosis. Then, more distally and at the apex there is no more than luminal irregularities. The ostium of D1 has 90% stenosis extending to the early proximal part of the vessel. This vessel is too small for intervention. LCx-this is large caliber and nondominant. There is an ostial 40% stenosis. The vessel travels in the AV groove giving a large branching OM1 and terminating distally as a large branching posterolateral. The circumflex and its branches have no more than mild luminal irregularities. RCA-large caliber and dominant. Bifurcates distally into a large and long PDA as well as a medium posterolateral branch. The proximal RCA has mild scattered plaques. The remainder of the RCA and its branches have no angiographically significant disease. Summary: 1. Moderate nonocclusive coronary disease as described. 2. Known severe valvular heart disease. Proceed with treatment per primary presidential support specialist. Hemodynamics Rest Ao:: 112/67 mmHg. Final Ao: 114/70 mmHg LV: Not performed Recommendations Recommendations: Medical Therapy and/or Counseling and Valve Replacement Radiation Exposure (mGy) 732 mGy, fluoroscopy time 2.5 minutes. Contrast (mls) 70 cc Anesthesia Start time 1332, end time 1348 Procedural Complication(s) None Disposition Meal Miller Holding/Recovery I attest to the content of the Intraoperative Record and any orders documented therein. Any exceptions are noted below. [facility] Card Cath Procedure Codes Cardiac Catheterization Procedure 1: Cardiovascular Cath Procedures: 74004 Coronaries Moderate Sedation Procedure 1: Sedation/Anesthesia: 29723 Mod Sedation by the same physician;Init15 Min Child Age 5 & Up (Initial 15 minutes, start time 1332: 20, end time 1348: 14) PG Care Time/CCT Total # of Minutes Spent Total Time Spent with Patient: Total time spent is greater than 50% in coordination of care (as documented) at patient's floor/unit and/or counseling patient:
[2024-12-06] MEDS ORDERED: POTASSIUM CHLORIDE CRTAB 20 MEQ TABCR PO SCH (09:00)
--- NOTE | 2024-12-08 04:57 | Electrocardiogram Report ---
Test Reason : Blood Pressure : */* mmHG Vent. Rate : 108 BPM Atrial Rate : 108 BPM P-R Int : 168 ms QRS Dur : 90 ms QT Int : 376 ms P-R-T Axes : 44 45 91 degrees QTcB Int : 503 ms Sinus tachycardia Premature atrial complexes Prolonged QT Abnormal ECG When compared with ECG of 03-Dec-2024 06:20, (unconfirmed) Premature atrial complexes are now Present Confirmed by Saulo Cast ([id number]) on 12/08/2024 4:57:24 AM Referred By: REFERRED SELF Confirmed By: Saulo Cast
--- NOTE | 2024-12-08 06:05 | Electrocardiogram Report ---
Test Reason : Blood Pressure : */* mmHG Vent. Rate : 76 BPM Atrial Rate : 76 BPM P-R Int : 138 ms QRS Dur : 90 ms QT Int : 416 ms P-R-T Axes : 21 64 149 degrees QTcB Int : 468 ms Normal sinus rhythm Anterior infarct (cited on or before 02-Dec-2024) Abnormal ECG When compared with ECG of 02-Dec-2024 13:49, (unconfirmed) No significant change was found Confirmed by Saulo Cast ([id number]) on 12/08/2024 6:05:11 AM Referred By: REFERRED SELF Confirmed By: Saulo Cast
--- NOTE | 2024-12-08 06:37 | Electrocardiogram Report ---
Test Reason : Blood Pressure : */* mmHG Vent. Rate : 82 BPM Atrial Rate : 82 BPM P-R Int : 140 ms QRS Dur : 86 ms QT Int : 388 ms P-R-T Axes : 13 54 130 degrees QTcB Int : 453 ms Normal sinus rhythm Anterior infarct , age undetermined Abnormal ECG When compared with ECG of 17-Jan-2012 14:28, No significant change Confirmed by Saulo Cast ([id number]) on 12/08/2024 6:37:11 AM Referred By: REFERRED SELF Confirmed By: Saulo Cast
== END 2024-12-05 12:40 | disposition home or self-care (01) | DRG 286 ==
LOC: ED 13:16 → SUATTDRO 15:31 → 4W 15:31
PROC: CLB.CCO (2024-12-04 12:30)